=== PATIENT | male | born 1945 | race Caucasian/White ===

== ENCOUNTER → 2019-12-16 13:43 | Outpatient (CLI) | payer MEDICARE, SELFPAY ==
--- NOTE | ~2019-12-16 | US_ITS ---
US right upper quadrant DATE: 12/16/2019 14:09 INDICATION: Epigastric abdominal pain TECHNIQUE: Real-time imaging of liver, pancreas, gallbladder areas COMPARISON: None FINDINGS: No hepatic or pancreatic space-occupying mass lesion. Normal hepatopedal portal venous flow direction. No gallstones, gallbladder wall thickening or abnormal pericholecystic fluid collection. Negative sonographic Mathews's sign. The common bile duct measures 3.6 mm, normal. IMPRESSION: Negative examination Reviewed, dictated and finalized at [facility]. Reviewed, dictated and finalized at location B. IMPRESSION: Negative examination
== END ==
PROVIDERS: Visit Provider Family Medicine
DX: R10.10 Upper abdominal pain, unspecified (principal)
CPT/HCPCS: 76705

== ENCOUNTER 2019-12-21 08:22 | Outpatient (CLI) | payer MEDICARE, SELFPAY ==
--- NOTE | ~2019-12-21 | NM_ITS ---
EXAMINATION: NM hepatobiliary w pharm DATE: 12/21/2019 11:27 INDICATION: Upper abdominal pain, unspecified. COMPARISON: Ultrasound 12/16/2019 TECHNIQUE: 5.5 mCi Tc-99m mebrofenin (Choletec) was administered intravenously. Scintigraphic images of the abdomen were obtained for one hour. Then, 2 mcg sincalide (Kinevac) IV was administered, and imaging was continued for 30 minutes. FINDINGS: There is normal clearance of radiotracer from the blood pool. There is homogeneous tracer u ptake by the liver. Activity progresses to the bowel and gallbladder. Gallbladder ejection fraction (GBEF) was 10%. Note that most patients with gallbladder dysfunction have GBEF < 35%, which overlaps with the broad normal range of 10-90%. IMPRESSION: 1. Gallbladder ejection fraction in the lower range of normal. Note that this value overlaps with th e range of values that may be seen with gallbladder dysfunction and/or chronic cholecystitis if there is appropriate clinical correlation. Reviewed, dictated and finalized at location A. IMPRESSION: 1. Gallbladder ejection fraction in the lower range of normal. Note that this value overlaps with the range of values that may be seen with gallbladder dysfu nction and/or chronic cholecystitis if there is appropriate clinical correlatio nThomas
== END 2019-12-21 08:23 | disposition home or self-care (01) ==
PROVIDERS: PCP Family Medicine; Visit Provider Family Medicine
DX: R10.10 Upper abdominal pain, unspecified (principal)
CPT/HCPCS: 78227; A9537; J2805

== ENCOUNTER 2020-02-08 09:00 | Outpatient (RCR) | payer MEDICARE, SELFPAY ==
[2019-12-06 12:55] VITALS: PULSE 46
--- NOTE | 2020-01-04 10:56 | PCCPR ---
Left message he would be absent. no reason given.
--- NOTE | 2020-01-23 09:11 | PCCPR ---
Absent today, no reason given.
--- NOTE | 2020-01-25 11:09 | PCCPR ---
Absent-Jozef called & stated he went golfing with a friend Thursday who texted him yesterday saying he was COVID positive. Jozef will quarantine & return on Thursday.
== END 2020-02-08 10:54 | disposition home or self-care (01) ==
LOC: ANHCPREHAB 09:00
PROVIDERS: PCP Family Medicine
DX: Z95.5 Presence of coronary angioplasty implant and graft (principal)
CPT/HCPCS: 93798

== ENCOUNTER 2020-02-27 00:28 | Outpatient (CLI) | payer MEDICARE, SELFPAY ==
[2020-02-27 18:12] LABS: SARS-CoV-2 RNA PCR Negative
== END 2020-02-27 00:29 | disposition home or self-care (01) ==
LOC: ANHCOVIDDT 00:29
PROVIDERS: PCP Family Medicine; Visit Provider Surgery
DX: Z01.818 Encounter for other preprocedural examination (principal); Z20.828 Contact with and (suspected) exposure to other viral communicable diseases
CPT/HCPCS: 87635; C9803; U0003

== ENCOUNTER 2020-02-27 10:12 | Outpatient (CLI) | payer MEDICARE, SELFPAY ==
[2020-02-27 10:43] LABS: Anion Gap 4 mmol/L (8-16); Blood Urea Nitrogen 18 mg/dL (9-20); Calcium 9.2 mg/dL (8.4-10.2); Carbon Dioxide 34 mmol/L (22-30); Chloride 103 mmol/L (98-107); Estimated Glomerular Filt Rate 60; Glucose 105 mg/dL (75-110); Potassium 4.4 mmol/L (3.4-5.0); Sodium 141 mmol/L (137-145)
[2020-02-27 10:44] LABS: Alanine Aminotransferase 60 U/L (4-50); Alkaline Phosphatase 74 U/L (38-126); Amylase 51 U/L (30-110); Aspartate Amino Transferase 41 U/L (17-59); Bilirubin,Total 0.8 mg/dL (0.2-1.3); Lipase 67 U/L (23-300)
== END 2020-02-27 10:13 | disposition home or self-care (01) ==
LOC: ANHSURGERY 10:14
PROVIDERS: Anesthesiology; PCP Family Medicine; Visit Provider Surgery
DX: K82.8 Other specified diseases of gallbladder (principal); E11.9 Type 2 diabetes mellitus without complications; Z01.818 Encounter for other preprocedural examination
CPT/HCPCS: 36415; 80048; 80076; 82150; 83690; 86850; 86900; 86901; 87635; C9803; U0003

== ENCOUNTER 2020-02-29 02:10 | Day surgery (SDC) | payer MEDICARE, SELFPAY ==
[2020-02-22 09:56] VITALS: BMI 27.1
[2020-02-29] VITALS (7 sets, daily range): BP systolic 125–158; BP diastolic 60–89; PULSE 51–71; RESP 14–22; TEMP 36.1–36.3; O2SAT 97–100
[2020-02-29 10:50] LABS: Glucose Point of Care 105 (65-105)
[2020-02-29] MEDS: LACTATED RINGERS 1,000 ML 30 ML IV CONT ×2 (10:50→13:29)
--- NOTE | 2020-02-29 10:57 | WPDANESEPPF ---
Anes - Initial Pre Proc Eval Procedure: Operation Date: 02/29/20 12:00 Proposed Procedures p Laparoscopic Cholecystectomy - Tracy Reyes MD Date/Time: 02/29/20 10:57 Surgeon: Tracy Reyes MD Pre Op Diagnosis: Chronic Cholecystitis without Calculus Patient Data Age: 74 Gender: M Height: 6 ft Weight: 91.3 kg Allergies Allergy/AdvReac Type Severity Reaction Status Date / Time No Known Allergies Allergy Verified 02/29/20 10:27 Home Medications Medication Instructions Recorded Confirmed Type metformin 500 mg tablet,extended 500 mg PO BID 04/13/19 02/29/20 History release 24 hr aspirin 81 mg tablet,delayed 81 mg PO DAILY 09/29/19 02/29/20 History release atorvastatin 80 mg tablet 80 mg PO HS 09/29/19 02/29/20 History amlodipine 5 mg tablet 5 mg PO DAILY 12/06/19 02/29/20 History clopidogrel 75 mg tablet 75 mg PO DAILY 12/06/19 02/29/20 History pantoprazole 40 mg tablet,delayed 40 mg PO QAM 12/26/19 02/29/20 History release carvedilol 6.25 mg tablet 3.125 mg PO Q12H tablet 01/26/20 02/29/20 History ascorbic acid (vitamin C) [Vitamin 1 g PO DAILY 02/22/20 02/29/20 History C] cholecalciferol (vitamin D3) 10 mcg PO DAILY 02/22/20 02/29/20 History cyanocobalamin (vitamin B-12) 2,000 mcg PO DAILY 02/22/20 02/29/20 History finasteride [Proscar] 5 mg PO HS 02/22/20 02/29/20 History tamsulosin [Flomax] 0.4 mg PO HS 02/22/20 02/29/20 History Laboratory Tests 02/29/20 10:48 POC Capillary Glucose 105 mg/dl mg/dl (65-105) Patient hx anesthesia problems: none Family hx anesthesia problems: none PMFSH Past Medical History Medical History Atherosclerosis of coronary artery of [place] heart without angina pectoris Essential (primary) hypertension GERD (gastroesophageal reflux disease) Mixed hyperlipidemia Type 2 diabetes mellitus without complication, without long-term current use of insulin Upper abdominal pain Surgical History Surgical History H/O neck surgery 2010 History of coronary artery stent placement July 27- stent placed July 30- 2 stents placed Family History Family History Mother Diabetes mellitus Family history of Parkinson's disease, Onset Age: 79 Father Family history of malignant neoplasm of kidney, Onset Age: 82 Sibling Diabetes mellitus Social History Social History Smoking packs per day: 1 Smoking cigarettes per day: 20.0 Years smoked: 30 Smoking pack-years: 30.00 Smoking status: Former smoker Tobacco type: cigarettes Second hand tobacco smoke exposure: No Smoking end date: 05/25/07 Additional smoking assessment comments: <PK/DAY/20+YRS - QUIT JULY 2019 Alcohol intake: current Drinks per week: 10 Substance use: never Living arrangements: with family Spiritual care concerns: No Anes - Eval Final PreProcedure Day of Procedure 02/29/20 10:57 Patient weight: overweight Heart: regular rate and rhythm Lungs: clear to auscultation Airway: Mallampati scale class III and special considerations poor opening Neurological: alert and oriented Last oral intake: >/= 8 hours ASA classification: III Emergent: no Anesthetic plan: proceed Anesthesia type and monitoring: general ETT and standard monitoring Other findings: jorje for glidescope Informed Consent: The patient's anesthetic plan and its attendant risks and benefits were discussed with the patient/family/POA. Questions were solicited and answers provided to the satisfaction of the patient/family/POA.
[2020-02-29] MEDS: KETOROLAC 15 MG/ML VIAL (*BKC) IV PUSH (11:15)
[2020-02-29] MEDS: ACETAMINOPHEN 500 MG TABLET 1000 MG PO (11:15)
--- NOTE | 2020-02-29 11:36 | WPDHPUPDATE1 ---
History and Physical Update Update Date/Time: 02/29/20 11:36 History and Physical has been reviewed, including an updated exam of the patient. There are NO changes in the patient's condition. Risks, benefits, and alternatives have been discussed and questions answered. Patient agrees to proceed with procedure.
--- NOTE | 2020-02-29 12:05 | PM.IMHP ---
H&P: HPI History of Present Illness Date/Time: 02/29/20 12:05 Chief complaint: Chronic Cholecystitis without Calculus Narrative: Eleazar Weber is a 74 year old male presented to my office c/o a few month h/o intermittent epigastric pain seemingly worse after eating. Pt also reports associated nausea and bloating. Workup including HIDA shows likely biliary dyskinesia, colic. Review of Systems Review of Systems: All systems reviewed & are unremarkable except as noted in HPI and below PMFSH Past Medical History Medical History Atherosclerosis of coronary artery of [place] heart without angina pectoris Essential (primary) hypertension GERD (gastroesophageal reflux disease) Mixed hyperlipidemia Type 2 diabetes mellitus without complication, without long-term current use of insulin Upper abdominal pain Surgical History Surgical History H/O neck surgery 2009 History of coronary artery stent placement July 27- stent placed July 30- stents placed Family History Family History Mother Diabetes mellitus Family history of Parkinson's disease, Onset Age: 79 Father Family history of malignant neoplasm of kidney, Onset Age: 82 Sibling Diabetes mellitus Social History Social History Smoking packs per day: 1 Smoking cigarettes per day: 20.0 Years smoked: 30 Smoking pack-years: 30.00 Smoking status: Former smoker Tobacco type: cigarettes Second hand tobacco smoke exposure: No Smoking end date: 05/25/07 Additional smoking assessment comments: <PK/DAY/20+YRS - QUIT JULY 2019 Alcohol intake: current Drinks per week: 10 Substance use: never Living arrangements: with family Spiritual care concerns: No Meds Home Medications and Allergies Home Medications Medication Instructions Recorded Confirmed Type metformin 500 mg tablet,extended 500 mg PO BID 04/13/19 02/29/20 History release 24 hr aspirin 81 mg tablet,delayed 81 mg PO DAILY 09/29/19 02/29/20 History release atorvastatin 80 mg tablet 80 mg PO HS 09/29/19 02/29/20 History amlodipine 5 mg tablet 5 mg PO DAILY 12/06/19 02/29/20 History clopidogrel 75 mg tablet 75 mg PO DAILY 12/06/19 02/29/20 History pantoprazole 40 mg tablet,delayed 40 mg PO QAM 12/26/19 02/29/20 History release carvedilol 6.25 mg tablet 3.125 mg PO Q12H tablet 01/26/20 02/29/20 History ascorbic acid (vitamin C) [Vitamin 1 g PO DAILY 02/22/20 02/29/20 History C] cholecalciferol (vitamin D3) 10 mcg PO DAILY 02/22/20 02/29/20 History cyanocobalamin (vitamin B-12) 2,000 mcg PO DAILY 02/22/20 02/29/20 History finasteride [Proscar] 5 mg PO HS 02/22/20 02/29/20 History tamsulosin [Flomax] 0.4 mg PO HS 02/22/20 02/29/20 History Allergies Allergy/AdvReac Type Severity Reaction Status Date / Time No Known Allergies Allergy Verified 02/29/20 10:27 Vital Signs Vital Signs - 24 hr 02/29/20 10:20 Temperature 36.1 C L Pulse Rate 51 L Respiratory Rate 16 Blood Pressure 135/75 Pulse Oximetry 98 Exam Const: General: no acute distress Resp: Auscultation: clear to auscultation bilaterally Cardio: Rate: regular rate Rhythm: regular rhythm GI: GI Palp: Yes Soft to palpation, Yes Tenderness to palpation present (GI), No Guarding due to palpation present (GI) and No Hernia present Assessment and Plan Assessment and plan (1) Biliary dyskinesia: Code(s): K82.8 - Other specified diseases of gallbladder Status: Acute Assessment and Plan: long dw pt and decision to proceed c cholecystectomy (2) CAD (coronary artery disease): Code(s): I25.10 - Atherosclerotic heart disease of [place] coronary artery without angina pectoris Status: Acute Assessment and Plan: hold antic
[2020-02-29] MEDS: ceFAZolin 2 GM/D5W 50 ML 2 GM/50 ML BAG IVPB (12:28)
[2020-02-29] MEDS: BUPIVACAINE/EPINEPHRINE 0.5% 10 ML VIAL 30 ML INFILTRATE (13:01)
--- NOTE | 2020-02-29 13:20 | PM.PROC ---
Procedure Note - Detailed Date of procedure: 02/29/20 Pre-op diagnosis: Chronic Cholecystitis without Calculus Post-op diagnosis: same Procedure performed: laparoscopic cholecystectomy Description of procedure: The patient was taken to the operating room placed in the supine position. After adequate induction of general anesthesia, the patient was prepped and draped in normal sterile fashion. A time-out was then performed to verify the patient's identity as well as the procedure being performed. I then made a 5 mm incision in the infraumbilical region. Through this, a Veress needle was placed into the peritoneal cavity and CO2 gas was then insufflated. After adequate pneumoperitoneum was achieved, the Veress needle was removed and a 5 mm trocar was placed through this incision. I then placed the laparoscope through this trocar site and under direct visualization placed a further 12 mm subxiphoid port as well as 2 additional 5 mm ports in the right upper abdomen. The was some omental adhesions to the right anterior abdominal wall and this was taken down bluntly to aid with visualization. The gallbladder was then identified and was noted to be moderately inflamed. I was able to place a grasper at the dome of the gallbladder and this was retracted anterior and cephalad up over the liver. A 2nd retractor was then placed at the infundibulum and retracted laterally, this allowed visualization of the triangle of [place]. I then was able to visualize the cystic duct in its entirety from its proximal insertion into the gallbladder, to its distal junction with the common hepatic/common bile duct junction. At this point, I carefully skeletonized the proximal cystic duct with the [place] dissector. I then clipped and transected the proximal cystic duct. Next I visualized the cystic artery. Again the artery was skeletonized, clipped, and transected. I then used the Bovie cautery to take down the peritoneal attachments of the gallbladder off the liver bed. Once the gallbladder specimen was completely detached, an endo-pouch was placed through the 12 mm port site. I then placed the gallbladder specimen into the Endo pouch and removed the endo-pouch from the 12 mm port site. The specimen will now be sent to pathology for further review. I then copiously irrigated the right upper quadrant. Hemostasis was noted in the liver bed, the clips were noted to be in good position on both the cystic duct stump and the cystic artery stump. No other pathology was noted in the right upper quadrant. I then moved the laparoscope to the subxiphoid port. No iatrogenic injury or other pathology was noted in the lower abdomen. At this point, the abdomen was desufflated and all ports removed. The fascia of the 12 mm subxiphoid port was closed with a 0 Vicryl figure of 8 suture. All port sites were then closed with 4.O Monocryl subcuticular sutures. Dermabond was placed on each incision. The patient tolerated the procedure well, was extubated in the operating room postoperative and will be transferred to the recovery room in stable condition. Implants: none Anesthesia: GETA Surgeon: Tracy Reyes MD Estimated blood loss (mL): 10 Drains: No Packing: No Pathology: yes Complications: No immediate complications Condition: stable Disposition: PACU Findings: chronic choleclystitis
[2020-02-29 13:36] LABS: Glucose Point of Care 117 (65-105)
== END 2020-02-29 14:57 | disposition home or self-care (01) ==
PROVIDERS: PCP Family Medicine; Visit Provider Surgery
PROC: 0FT44ZZ Resection of Gallbladder, Percutaneous Endoscopic Approach (ICD-10-PCS; CPT 47562; principal; 2020-02-29 12:00)
DX: K81.1 Chronic cholecystitis (principal); I10 Essential (primary) hypertension; I25.10 Atherosclerotic heart disease of native coronary artery without angina pectoris; E78.2 Mixed hyperlipidemia; E11.9 Type 2 diabetes mellitus without complications; K21.9 Gastro-esophageal reflux disease without esophagitis; Z87.891 Personal history of nicotine dependence; Z79.84 Long term (current) use of oral hypoglycemic drugs; Z79.82 Long term (current) use of aspirin; Z79.02 Long term (current) use of antithrombotics/antiplatelets
CPT/HCPCS: 47562; 88304; A9270; J0690; J1100; J1885; J2001; J2405; J2710; J3010; J7030; J7120

== ENCOUNTER 2021-02-14 11:11 | Outpatient (RCR) | payer MEDICARE, SELFPAY ==
--- NOTE | 2021-02-14 09:33 | PC.NURSE ---
Patient received both doses of the Pfizer vaccine in May and June 2020.
[2021-02-14] MEDS: diphenhydrAMINE HCl CAP 25 MG CAPSULE PO (12:05)
[2021-02-14] MEDS: ACETAMINOPHEN 325 MG TABLET 650 MG PO (12:05)
[2021-02-14 12:15] VITALS: BP 121/60; PULSE 48; RESP 18; TEMP 36.6; O2SAT 100
[2021-02-14 13:37] VITALS: BP 128/63; PULSE 46; RESP 18; TEMP 36.4; O2SAT 100
== END 2021-02-14 13:50 | disposition home or self-care (01) ==
LOC: AMCINF 11:11
PROVIDERS: PCP Family Medicine; Referring Provider Family Medicine; Visit Provider Internal Medicine Hematology & Oncology
DX: Z23 Encounter for immunization (principal); U07.1 COVID-19; I10 Essential (primary) hypertension; E11.9 Type 2 diabetes mellitus without complications; I25.10 Atherosclerotic heart disease of native coronary artery without angina pectoris
CPT/HCPCS: A9270; J7050; M0243

== ENCOUNTER → 2021-10-31 10:29 | Outpatient (CLI) | payer MEDICARE, SELFPAY ==
--- NOTE | ~2021-10-31 | XR_ITS ---
XR shoulder LT min 2V DATE: 10/31/2021 10:53 INDICATION: Left shoulder pain TECHNIQUE: 4 views COMPARISON: None FINDINGS: Status post lower anterior cervical spine surgical fusion. No fracture or dislocation, periosteal reaction or bone destruction or abnormal soft tissue calcifica tion of the left shoulder. Normal alignment at the left acromioclavicular and glenohumeral joints. IMPRESSION: No significant abnormality of the left shoulder Status post anterior C6-7 surgical spinal fusion Reviewed, dictated and finalized at location A.
--- NOTE | ~2021-10-31 | XR_ITS ---
XR shoulder RT min 2V DATE: 10/31/2021 10:54 INDICATION: Right shoulder pain. No injury. TECHNIQUE: 4 views COMPARISON: None FINDINGS: There is narrowing at the right glenohumeral joint consistent with degenerative change. No fracture or dislocation, periosteal reaction or bone destruction or abnormal soft tissue calcifica tion of the right shoulder. IMPRESSION: Mild degenerative change at right acromioclavicular joint Reviewed, dictated and finalized at location A.
== END ==
PROVIDERS: PCP Family Medicine; Visit Provider Nurse Practitioner Family
DX: M25.512 Pain in left shoulder (principal); M19.011 Primary osteoarthritis, right shoulder; Z98.1 Arthrodesis status
CPT/HCPCS: 73030

== ENCOUNTER 2021-12-05 11:08 | Outpatient (CLI) | payer MEDICARE, SELFPAY ==
--- NOTE | ~2021-12-05 | US_ITS ---
US renal BI 12/05/2021 11:46 Procedure: Realtime transabdominal ultrasound of the kidneys and bladder. Indication: Renal insufficiency Comparison: Ultrasound dated 12/26/2013 Findings: Renal echotexture is normal bilaterally without hydronephrosis, contour deforming mass or r enal calculus. The right kidney measures 11.2 cm and left kidney measures 10.2 cm. There are left crow al cysts, largest measuring 4.5 cm. There is enlarged prostate gland. Bladder within normal limits. Impression: 1: Left renal cyst measuring up to 4.5 cm. Reviewed, dictated and finalized at location A. Impression: 1: Left renal cyst measuring up to 4.5 cm.
== END 2021-12-05 11:09 | disposition home or self-care (01) ==
LOC: ANHIMG 11:09
PROVIDERS: PCP Family Medicine; Visit Provider Family Medicine
DX: N28.9 Disorder of kidney and ureter, unspecified (principal); N28.1 Cyst of kidney, acquired
CPT/HCPCS: 76775

== ENCOUNTER 2023-02-05 08:31 | Emergency (ER) | payer MEDICARE, SELFPAY ==
[2023-02-05 08:42] VITALS: BP 148/64; PULSE 57; RESP 20; TEMP 36.2; O2SAT 100
--- NOTE | 2023-02-05 08:47 | ED.GENADULT ---
HPI - General Adult General Chief complaint: Unspecified Stated complaint: Nerve stuff in shoulders/hands Source: patient Mode of arrival: ambulatory Limitations: no limitations History of Present Illness HPI narrative: 77-year-old male with a history of arthralgia presented for complaint bilateral shoulder pain, bilateral hand, and right wrist pain. Endorses the symptoms are chronic; he follows with interventional pain management and receives steroid injections to shoulders every 6 months. He states he is scheduled for the next injection in February, and symptoms tend to return when steroid is wearing off. Denies numbness, tingling, weakness or decreased ROM of the arms. Patient continues to golf regularly, stating the pain can affect the golf swing. Taking Tylenol arthritis BID. Related Data Home Medications Medication Instructions Recorded Confirmed aspirin 81 mg tablet,delayed 81 mg PO DAILY 09/29/19 02/05/23 release (Enteric Coated Aspirin) ascorbic acid (vitamin C) 1,000 mg 1 g PO DAILY 02/22/20 02/05/23 tablet (Vitamin C) cholecalciferol (vitamin D3) 10 400 unit PO DAILY 03/11/22 02/05/23 mcg (400 unit) tablet cyanocobalamin (vitamin B-12) 2,000 mcg PO DAILY 03/11/22 02/05/23 2,000 mcg tablet Allergies Allergy/AdvReac Type Severity Reaction Status Date / Time No Known Allergies Allergy Verified 02/05/23 08:49 Review of Systems Review of Systems: CONSTITUTIONAL: Denies body aches, fever, chills EYES: Denies visual changes ENT: Denies rhinorrhea, congestion CARDIOVASCULAR: Denies chest pain, palpitations, or edema. RESPIRATORY: Denies cough or dyspnea. GASTROINTESTINAL: Denies abdominal pain, nausea, vomiting, or diarrhea. SKIN: Denies rash, itching, or wounds. MUSCULOSKELETAL: Reports joint pain Denies back pain, neck pain or myalgia. NEUROLOGIC: Denies headache, numbness, tingling, or weakness. All systems reviewed & are unremarkable except as noted in HPI and below [facility] Past Medical History Medical History At low risk for fall Atherosclerosis of coronary artery of [place] heart without angina pectoris Basal cell carcinoma (~07/14/19) left inferior lateral neck Biliary dyskinesia BMI 24.0-24.9, adult BMI 25.0-25.9,adult BMI 26.0-26.9,adult BMI 31.0-31.9,adult CAD (coronary artery disease) Chronic cholecystitis COVID-19 (02/10/21) fully vaccinated and positive for COVID on 02/13/2021 Diarrhea stool for O&P, C&S, Giardia, C difficile toxin negative on 03/13/2022. Dizziness Dysplastic nevus dysplastic nevus with mild atypia right midback Encounter for prostate cancer screening Encounter for surgical aftercare following surgery on the digestive system Essential (primary) hypertension GERD (gastroesophageal reflux disease) Irritable bowel syndrome with diarrhea Left shoulder pain jail (current) use of antithrombotics/antiplatelets Malignant melanoma (07/12/20) left posterior shoulder excised with no recurrence Mixed hyperlipidemia Cholesterol 111, triglycerides 60, HDL 48, LDL 49 on 09/25/2021. Total cholesterol 114, HDL 55, triglycerides 54, LDL 46 with ratio 2.1 on 11/26/2022. Overweight (BMI 25.0-29.9) Peripheral vascular disease with claudication Right shoulder pain Squamous cell carcinoma Type 2 diabetes mellitus without complication, without long-term current use of insulin Fasting glucose 93 with hemoglobin A1c 5.9 , urine microalbumin ratio of 5 on 09/25/2021. Glucose 110 with hemoglobin A1c 5.9 on 02/07/2022. Fasting glucose 127 with hemoglobin A1c 6.1 on 11/26/2022. Upper abdominal pain Surgical History Surgical History H/O neck surgery 2009 History of coronary artery stent placement July 27- stent placed July 30- 2 stents placed Hx laparoscopic cholecystectomy 02/29/2020 Family History Family History (Reviewed 02/05/23 @ 09:02 by Zaida
[2023-02-05 08:52] VITALS: BP 148/64; PULSE 57; RESP 20; TEMP 36.2; O2SAT 100
== END 2023-02-05 09:00 | disposition home or self-care (01) ==
PROVIDERS: Emergency Provider Nurse Practitioner Family; PCP Family Medicine
DX: M25.512 Pain in left shoulder (principal); M25.511 Pain in right shoulder; Z87.891 Personal history of nicotine dependence; I25.10 Atherosclerotic heart disease of native coronary artery without angina pectoris; I10 Essential (primary) hypertension; K21.9 Gastro-esophageal reflux disease without esophagitis; E78.2 Mixed hyperlipidemia; I73.9 Peripheral vascular disease, unspecified; E11.9 Type 2 diabetes mellitus without complications; Z85.828 Personal history of other malignant neoplasm of skin; Z85.820 Personal history of malignant melanoma of skin; Z95.5 Presence of coronary angioplasty implant and graft; Z79.82 Long term (current) use of aspirin
CPT/HCPCS: 99213; G0463

== ENCOUNTER 2023-10-26 18:04 | Emergency (ER) | payer MEDICARE, SELFPAY ==
--- NOTE | ~2023-10-26 | XR_ITS ---
EXAMINATION: XR chest 2V Exam Date/Time: 10/26/2023 18:40 CDT HISTORY: cough x 10days. ex smoker Comparison: None. RESULT: Lines, tubes, and devices: ACDF hardware. Cholecystectomy clips. Lungs and pleura: Clear. Cardiomediastinal silhouette: Unremarkable. Other: No acute osseous or upper abdominal finding. IMPRESSION: No acute cardiopulmonary process. Reviewed, dictated and finalized at location K.
[2023-10-26 18:08] VITALS: BP 102/51; PULSE 78; RESP 20; TEMP 36.9; O2SAT 98
--- NOTE | 2023-10-26 18:26 | ED.URI ---
HPI - URI/Sore Throat General Chief Complaint: Upper Respiratory Infection Stated Complaint: Cough/congestion Time Seen by Provider: 10/26/23 18:30 Source: patient, RN notes reviewed and old records reviewed Mode of arrival: ambulatory Limitations: no limitations History of Present Illness HPI Narrative: 78-year-old male presents to the [facility] with complaints of, congestion for the last 10 days. Denies any chest pain or fevers. Has had intermittent shortness of breath with coughing. Has a history of hypertension, high cholesterol and prostate issues. Has been using his prescribed inhaler, cough medicine and decongestants. Has been using Vicks as well as Zyrtec. Patient reports Zyrtec has worked the best. Onset (ago): day(s) () Treatments prior to arrival: cold medicine Related Data Home Medications Medication Instructions Recorded Confirmed aspirin 81 mg tablet,delayed 81 mg PO DAILY 09/29/19 10/06/23 release (Enteric Coated Aspirin) ascorbic acid (vitamin C) 1,000 mg 1 g PO DAILY 02/22/20 10/06/23 tablet (Vitamin C) cholecalciferol (vitamin D3) 10 400 unit PO DAILY 03/11/22 10/06/23 mcg (400 unit) tablet cyanocobalamin (vitamin B-12) 2,000 mcg PO DAILY 03/11/22 10/06/23 2,000 mcg tablet Allergies Allergy/AdvReac Type Severity Reaction Status Date / Time No Known Allergies Allergy Verified 02/26/23 09:32 Review of Systems Review of Systems: All systems reviewed & are unremarkable except as noted in HPI and below Constitutional: Constitutional: Reports no additional constitutional complaints Eyes: Eyes: Reports no additional eye complaints ENT: Reports system reviewed and no additional complaints, except as documented Cardiovascular: Cardiovascular: Reports no additional cardiovascular complaints, Denies chest pain and Denies dyspnea Respiratory: Respiratory: Reports as per HPI, Reports chest congestion, Reports cough and Denies dyspnea Gastrointestinal: Gastrointestinal: Reports no additional gastrointestinal complaints, Denies abdominal pain, Denies nausea and Denies vomiting Musculoskeletal: Musculoskeletal: Reports no additional musculoskeletal complaints Integumentary/Breasts: Skin/Breast: Reports system reviewed and no additional complaints, except as docu Neurologic: Reports system reviewed and no additional complaints, except as documented Psychiatric: Psychiatric: Reports no additional psychiatric complaints Allergic/Immunologic: Allergic/Immunologic: Reports no additional allergic/immunologic complaints PMFSH Past Medical History Medical History At low risk for fall Atherosclerosis of coronary artery of [place] heart without angina pectoris Basal cell carcinoma (~07/14/19) left inferior lateral neck Biliary dyskinesia BMI 24.0-24.9, adult BMI 25.0-25.9,adult BMI 26.0-26.9,adult BMI 31.0-31.9,adult CAD (coronary artery disease) Chronic cholecystitis COVID-19 (02/10/21) fully vaccinated and positive for COVID on 02/13/2021 Diarrhea stool for O&P, C&S, Giardia, C difficile toxin negative on 03/13/2022. Dizziness Dysplastic nevus dysplastic nevus with mild atypia right midback Elevated fasting glucose glucose 127 with hemoglobin A1c 6.1 on 11/26/2022. Encounter for prostate cancer screening Encounter for surgical aftercare following surgery on the digestive system Essential (primary) hypertension GERD (gastroesophageal reflux disease) Irritable bowel syndrome with diarrhea Left shoulder pain [employer] (current) use of antithrombotics/antiplatelets Malignant melanoma (07/12/20) left posterior shoulder excised with no recurrence Mixed hyperlipidemia Cholesterol 111, triglycerides 60, HDL 48, LDL 49 on 09/25/2021. Total cholesterol 114, HDL 55, triglycerides 54, LDL 46 with ratio 2.1 on 11/26/2022. Overweight (BMI 25.0-29.9) Peripheral vascular disease with claudication Right shoulder pain Squamous cell carcinoma T
== END 2023-10-26 19:11 | disposition home or self-care (01) ==
PROVIDERS: Emergency Provider Nurse Practitioner; PCP Family Medicine
DX: J40 Bronchitis, not specified as acute or chronic (principal); Z87.891 Personal history of nicotine dependence; I25.10 Atherosclerotic heart disease of native coronary artery without angina pectoris; K21.9 Gastro-esophageal reflux disease without esophagitis; E78.2 Mixed hyperlipidemia; I73.9 Peripheral vascular disease, unspecified; E11.9 Type 2 diabetes mellitus without complications; Z85.828 Personal history of other malignant neoplasm of skin; Z85.820 Personal history of malignant melanoma of skin; Z86.16 Personal history of COVID-19; Z95.5 Presence of coronary angioplasty implant and graft
CPT/HCPCS: 71046; 99213; G0463

== ENCOUNTER 2024-05-20 14:10 | Emergency (ER) | payer MEDICARE, SELFPAY ==
--- NOTE | ~2024-05-20 | XR_ITS ---
XR chest 2V Ordering provider: Kristin Romo APRN History: 78 years Male with . cough sob . Comparison: October 26, 2023 FINDINGS: MEDIASTINUM: The cardiac silhouette is not enlarged. LUNGS: No infiltrates, effusions or pneumothorax. OTHER: No free air under the diaphragm. IMPRESSION: No acute cardiopulmonary pathology. Reviewed, dictated and finalized at location A. [employer]
[2024-05-20 14:21] VITALS: BP 89/53; PULSE 77; RESP 16; TEMP 36.9; O2SAT 96
[2024-05-20 14:52] VITALS: BP 92/50
--- NOTE | 2024-05-20 14:56 | ED_ITS ---
HPI - URI/Sore Throat General Chief Complaint: Upper Respiratory Infection Stated Complaint: Chest Congestion/Cough Time Seen by Provider: 05/20/24 15:06 Source: patient Mode of arrival: ambulatory Limitations: no limitations History of Present Illness HPI Narrative: 78-year-old male with a history of CKD, CAD, DM, presented for complaint of frequent cough and chest congestion for 3 days. Endorses occasional shortness of breath with exertion and a 'gurgling' sound. Denies nausea, vomiting, diarrhea, fevers or lethargy. Related Data Home Medications ?Medication ?Instructions ?Recorded ?Confirmed ?Last Taken ?Type aspirin 81 mg tablet,delayed 81 mg PO DAILY 09/29/19 05/10/24 Unknown History release (Enteric Coated Aspirin) ascorbic acid (vitamin C) 1,000 mg 1 g PO DAILY 02/22/20 05/10/24 Unknown History tablet (Vitamin C) cholecalciferol (vitamin D3) 10 400 unit PO DAILY 03/11/22 05/10/24 Unknown History mcg (400 unit) tablet cyanocobalamin (vitamin B-12) 2,000 mcg PO DAILY 03/11/22 05/10/24 Unknown History 2,000 mcg tablet Allergies Allergy/AdvReac Type Severity Reaction Status Date / Time No Known Allergies Allergy Verified 02/29/24 09:04 Review of Systems Review of Systems: CONSTITUTIONAL: Denies body aches, fever, chills, or sweats. EYES: Denies visual changes, redness, or discharge. ENT: Denies rhinorrhea, congestion, sore throat, or otalgia. CARDIOVASCULAR: Denies chest pain, palpitations, or edema. RESPIRATORY: Reports cough, sob, denies wheezing. GASTROINTESTINAL: Denies abdominal pain, nausea, vomiting, or diarrhea. MUSCULOSKELETAL: Denies back pain, joint pain, or myalgia. NEUROLOGIC: Denies headache, numbness, tingling, or weakness. All systems reviewed & are unremarkable except as noted in HPI and below PMFSH Past Medical History Medical History (Updated 05/20/24 @ 15:49 by Kristin Romo, ASH) Malignant melanoma (07/12/20) left posterior shoulder excised with no recurrence Elevated fasting glucose glucose 127 with hemoglobin A1c 6.1 on 11/26/2022. Controlled diabetes mellitus without complication, without long-term current use of insulin (05/05/24) fasting glucose 110 with hemoglobin A1c 6.5 and urine microalbumin ratio of 14 with GFR 49 on 05/05/2024. Chronic kidney disease (CKD) stage G3a/A1, moderately decreased glomerular filtration rate (GFR) between 45-59 mL/min/1.73 square meter and albuminuria creatinine ratio less than 30 mg/g (05/05/24) BUN 27, creatinine 1.52 with GFR 45 on 01/30/2021. BUN 35, creatinine 1.67, GFR 40 on 09/25/2021. Renal ultrasound 12/05/2021 with cyst in the left kidney with largest 4.5 cm with normal bladder and mild prostate enlargement. BUN 38 with creatinine 1.82 with GFR 38, decreased from 40 on 02/07/2022. BUN 34, creatinine 1.42 with GFR 52 on 11/26/2022. BUN 25, creatinine 1.48 with GFR 49 on 05/05/2024. At low risk for fall BMI 24.0-24.9, adult Irritable bowel syndrome with diarrhea Encounter for prostate cancer screening PSA 1.08 on 05/05/2024. Diarrhea stool for O&P, C&S, Giardia, C difficile toxin negative on 03/13/2022. 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 Essential (primary) hypertension Mixed hyperlipidemia Cholesterol 111, triglycerides 60, HDL 48, LDL 49 on 09/25/2021. Total cholesterol 114, HDL 55, triglycerides 54, LDL 46 with ratio 2.1 on 11/26/2022. Cholesterol 99, HDL 47, triglycerides 42, LDL 40 with ratio of 2.1 on 05/05/2024. Peripheral vascular disease with claudication Type 2 diabetes mellitus without complication, without long-term current use of insulin Elevated fasting glucose, no diabetes. Fasting glucose 93 with hemoglobin A1c 5.9 , urine microalbumin ratio of 5 on 09/25/2021. Glucose 110 with hemoglobin A1c 5.9 on 02/07/2022. Fasting glucose 127 with hemoglobin A1c 6.1 on 11/26/2022. Surgical History Surgical History Hx laparoscopic cholecystectomy 02/29/2020 History of coronary artery stent placement July 27- 1 stent placed July 30- 2 stents placed H/O neck surgery 2009 Family History Family History Mother Diabetes mellitus Family history of Parkinson's disease, Onset Age: 79 Father Family history of malignant neoplasm of kidney, Onset Age: 82 Sibling Diabetes mellitus Social History Social History Smoking packs per day: 0.75 Smoking cigarettes per day: 15.0 Years smoked: 20 Smoking pack-years: 15.00 Smoking status: Former smoker Tobacco type: cigarettes Second hand tobacco smoke exposure: No Smoking end date: 05/25/07 Additional smoking assessment comments: <PK/DAY/20+YRS - QUIT JULY 2019 Alcohol intake: current Drinks per week: 10 Substance use: never Lack of Transportation: No Lack of Food: Never True Current Housing: I Have Housing Concerned About Future Housing: No Difficulty Paying Gas/Electric Bills: No Difficulty Paying for Meds: No Currently Unemployed: No Education: High School Diploma/GED Difficulty w/ Childcare or Family Care: No Living arrangements: with family Spiritual care concerns: No Comments At time of signature, I have reviewed and agree with nursing past medical, surgical, social and family history unless otherwise noted. Please see nursing chart for further information. There is no relevant family history pertinent to the presenting complaint Exam Narrative: GENERAL: Well-appearing, in no acute distress. EYES: EOMI. No redness or drainage. Conjunctivae normal. ENT: Mucous membranes pink and moist. No rhinorrhea. TMs normal bilaterally. Throat normal. Uvula midline. NECK: Normal AROM. Supple. CHEST: No respiratory distress. Lungs clear to all lo. frequent moist nonproductive cough noted HEART: Regular rate and rhythm. No murmur appreciated. ABDOMEN: Soft, nontender, nondistended, normal active bowel sounds. SKIN: Warm, dry, no rash. Capillary refill normal. Normal skin turgor. NEURO: Alert and oriented x3. Gait steady. PSYCH: Normal affect. Course Course Emergency Course: Patient is aware of diagnosis, understands and agrees to treatment plan. Anticipatory guidance given. Patient agrees to follow-up as directed and is aware of reasons to seek care at the emergency department. Portions of this record may have been created with voice recognition software Level of Care: Express Care Visit Vital Signs Vital signs: Vital Signs Temperature 98.4 F 05/20/24 14:21 Pulse Rate 77 05/20/24 14:21 Respiratory Rate 16 05/20/24 14:21 Blood Pressure 89/53 L 05/20/24 14:21 Pulse Oximetry 96 05/20/24 14:21 Oxygen Delivery Room Air 05/20/24 14:21 Temperature 98.4 F 05/20/24 14:21 Pulse Rate 77 05/20/24 14:21 Respiratory Rate 16 05/20/24 14:21 Blood Pressure 92/50 L 05/20/24 14:52 Pulse Oximetry 96 05/20/24 14:21 Oxygen Delivery Room Air 05/20/24 14:42 MDM - URI/Sore Throat MDM Narrative Medical decision making narrative: Discussed physical exam findings. negative flu and COVID. Chest x-ray reviewed with patient. Advised supportive measures and signs/symptoms to go to the ER. Pt is appropriate for outpt treatment and f/u. Differential Diagnosis Differential diagnosis: Likely upper respiratory infection, otitis media, viral infection, bronchitis, influenza and pharyngitis Lab Data Labs: Lab Results 05/20/24 Range/Units 15:21 POC Influenza A Ag Negative (Negative) POC Influenza B Ag Negative (Negative) POC SARS CoV-2 Ag Negative (Negative) Imaging Data Radiologist's impression: Patient: Eleazar Weber : 1945 MR#: [id number] Age: 78 Acct:[id number] Loc: [facility] ADM Date: 05/20/24Attending Dr: Ordering Physician: Kristin Romo APRN Date of Service: 05/20/24 Procedure(s): XR chest 2V Accession Number(s): [id number] cc: Kristin Romo APRN; Sukhdev Sena MD~ XR chest 2V Ordering provider: Kristin Romo APRN History: 78 years Male with . cough sob . Comparison: October 26, 2023 FINDINGS: MEDIASTINUM: The cardiac silhouette is not enlarged. LUNGS: No infiltrates, effusions or pneumothorax. OTHER: No free air under the diaphragm. IMPRESSION: No acute cardiopulmonary pathology. Discharge Plan Discharge Clinical Impression: Bronchitis, Low blood pressure reading Patient Disposition: Home, Self-Care Condition: Stable Instructions: Antibiotic Form, Acute Bronchitis (ED), Hypotension (ED) Additional Instructions: Your blood pressure reading was low today. please follow-up with your primary care provider for further evaluation and management. If you develop worsening Blood Pressure symptoms, (chest pain, vision changes, dizziness, vomiting, etc) go to the ER. Call 911. Recommend checking your blood pressure at home at least daily and contact your pcp to discuss the readings. flu and COVID negative. Acute bronchitis can be contagious because it is usually caused by infection with a virus or bacteria. It is usually for a few days but you can be contagious for up to one week. Avoid crowds until you do not have a fever and symptoms are improved Take medication as directed Recommend Flonase spray and Zyrtec (or Claritin/Jailene) over the counter Cough syrup may cause drowsiness; avoid driving or take it at night time. Tylenol 1000mg every 8 hours as needed for pain Symptomatic treatment includes: rest, fluids, and increase humidity of the air at home. Follow up with your primary care provider as needed in 1 week Go to the ER for worsening symptoms or concerns Patient Language: Martiniquais Prescriptions: New methylprednisolone [Medrol ([place])] 4 mg tablets,dose pack See Rx Instructions .ROUTE .COMPLEX Qty: 21 0RF Rx Instructions: orally per package directions No Action aspirin [Enteric Coated Aspirin] 81 mg tablet,delayed release (DR/EC) 81 mg PO DAILY hyoscyamine sulfate [Levsin/SL] 0.125 mg tablet, sublingual 0.125 mg sublingual QID PRN (Reason: diarrhea) Qty: 60 11RF dapagliflozin propanediol [Farxiga] 10 mg tablet 10 mg PO QAM Qty: 30 11RF ascorbic acid (vitamin C) [Vitamin C] 1,000 mg Tablet 1 g PO DAILY cholecalciferol (vitamin D3) 10 mcg (400 unit) tablet 400 unit PO DAILY cyanocobalamin (vitamin B-12) 2,000 mcg tablet 2,000 mcg PO DAILY cholestyramine (with sugar) 4 gram powder 4 g PO DAILY Qty: 378 3RF Rx Instructions: administer w/meal; avoid other meds within 1hr before or 4-6hr after dose losartan-hydrochlorothiazide 50-12.5 mg tablet See Rx Instructions .ROUTE .COMPLEX Qty: 180 2RF Dose Instruction: TAKE 1 TABLET BY MOUTH TWICE DAILY Rx Instructions: TAKE 1 TABLET BY MOUTH TWICE DAILY atorvastatin 80 mg tablet 80 mg PO DAILY Qty: 90 2RF carvedilol 3.125 mg tablet 3.125 mg PO BID Qty: 180 2RF amlodipine 5 mg tablet 5 mg PO DAILY Qty: 90 2RF tamsulosin [Flomax] 0.4 mg capsule 0.4 mg PO HS Qty: 30 11RF finasteride [Proscar] 5 mg tablet 5 mg PO HS Qty: 90 3RF Follow-up/Referrals: Sukhdev Sena MD [Primary Care Provider] - Time of Disposition: 15:50
[2024-05-20 15:23] LABS: EDCOVIDSCREEN Negative (Negative); EDINFLUASCREEN Negative (Negative); EDINFLUBSCREEN Negative (Negative)
== END 2024-05-20 15:52 | disposition home or self-care (01) ==
PROVIDERS: Emergency Provider Nurse Practitioner Family; PCP Family Medicine
DX: J40 Bronchitis, not specified as acute or chronic (principal); I95.9 Hypotension, unspecified; Z20.822 Contact with and (suspected) exposure to COVID-19; Z87.891 Personal history of nicotine dependence; I12.9 Hypertensive chronic kidney disease with stage 1 through stage 4 chronic kidney disease, or unspecified chronic kidney disease; E11.22 Type 2 diabetes mellitus with diabetic chronic kidney disease; N18.31 Chronic kidney disease, stage 3a; I25.10 Atherosclerotic heart disease of native coronary artery without angina pectoris; K21.9 Gastro-esophageal reflux disease without esophagitis; Z95.5 Presence of coronary angioplasty implant and graft; E78.2 Mixed hyperlipidemia; E11.51 Type 2 diabetes mellitus with diabetic peripheral angiopathy without gangrene; Z85.820 Personal history of malignant melanoma of skin; Z85.828 Personal history of other malignant neoplasm of skin
CPT/HCPCS: 71046; 87426; 87804; 99213; G0463

== ENCOUNTER 2025-02-04 08:05 | Emergency (ER) | payer MEDICARE, SELFPAY ==
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
--- OUTSIDE RECORDS SUMMARY | 2025-02-04 08:13 | XMS_ITS | Clinical Summary ---
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 01/21/2021 Active metFORMIN (GLUCOPHAGE) 500 mg tablet Take 1 tablet (500 mg total) by mouth Active atorvastatin (LIPITOR) 80 mg tablet 01/21/2021 Active carvediloL (COREG) 6.25 mg tablet Take 1 tablet (6.25 mg total) by mouth 2 (two) times a day 01/21/2021 Active amLODIPine (NORVASC) 5 mg tablet Take 1 tablet (5 mg total) by mouth daily 01/26/2021 Active clopidogreL (PLAVIX) 75 mg tablet Take 1 tablet (75 mg total) by mouth daily 01/21/2021 Active losartan-hydroC HLOROthiazide (HYZAAR) 50-12.5 mg per tablet Take 1 tablet by mouth 2 (two) times a day 01/31/2021 Active aspirin 81 mg enteric coated tablet Take 1 tablet (81 mg total) by mouth daily Active Active Problems No known active problems Surgical History Surgery Date Site/Laterality Comments APPENDECTOMY NECK SURGERY CHOLECYSTECTOMY Medical History Medical History Date Comments Diabetes mellitus (HCC) Hypertension Hyperlipidemia Heart disease Social History Tobacco Use Types Packs/Day Years Used Date Smoking Tobacco: Former AUDIT-C Answer Date Recorded Q1: How often do you have a drink containing alc ohol? 2-3 times a week 03/08/2024 Q2: How many drinks containi ng alcohol do you have on a typical day when you are drinking? 1 or 2 03/08/2024 Q3: How often do you have si x or more drinks on one occasion? Weekly 03/08/2024 Personal Safety Answer Date Recorded Getting School Help Needed Not on file 07/14 Sex and Gender Information Value Date Recorded Sex Assigned at Not on file Legal Sex Male 9:58 AM CDT Gender Identity Not on file Sexual Orientation Not on file Obstetrics History Last Filed Vital Signs Vital Sign Reading Time Taken Comments Blood Pressure 107/69 03/08/2024 11:12 AM CDT Pulse 63 03/08/2024 11:12 AM CDT Temperature 36.3 C (97.4 F) 02/19/2021 12:08 PM CDT Respiratory Rate 16 02/13/2021 9:43 AM CDT Oxygen Saturation 97% 02/19/2021 12:08 PM CDT Inhaled Oxygen Concentration - - Weight 82.1 kg (181 lb) 03/08/2024 11:12 AM CDT Height 177.8 cm (5' 10) 03/08/2024 11:12 AM CDT Body Mass Index 25.97 03/08/2024 11:12 AM CDT Plan of Treatment Health Maintenance Due Date Last Done Comments Depression Screening 1945 Fall Risk Assessment 1945 Hepatitis C Screening 1945 DTaP/Tdap/Td Vaccine (1 - Tdap) 09/07/1958 Hepatitis B Screening 09/07/1965 Pneumococcal vaccine 65+ (1 of 1 - PCV) 09/07/1997 Zoster Vaccine (1 of 2) 09/07/1997 Abdominal Aortic Aneurysm (A AA) Screen 09/07/2012 Well Visit 65+ 09/07/2012 Covid-19 Vaccine (4 - 2024-2 6 season) 2025 02/17/2023, 03/18/2022, 05/21/2021 Influenza Vaccine (#1) 2025 , 03/18/2022, 02/02/2020, Additional history exists Insurance MEDICARE [facility] MEDICARE SUPPLEMENT INSURANCE * Guarantor: ELEAZAR [employer] Account Type Relation to Patient Date of Phone Billing Address Personal/Family [address] [place] [id number] MEDICARE [facility] MEDICARE SUPPLEMENT INSURANCE Care Teams Barrel Lathe Operator Outside Relationship Specialty Start Date End Date Sukhdev Sena MD [address] [id number] PCP - General Family Medicine 02/12/21
[2025-02-04 08:14] VITALS: BP 129/71; PULSE 54; RESP 14; TEMP 36.5; O2SAT 99
--- NOTE | 2025-02-04 08:29 | ED.URI ---
HPI - URI/Sore Throat General Chief Complaint: Upper Respiratory Infection Stated Complaint: cough,cold Time Seen by Provider: 02/04/25 08:18 Source: patient and RN notes reviewed Mode of arrival: ambulatory Limitations: no limitations History of Present Illness HPI Narrative: Patient presents today complaining of 7-10 day history of cough and nasal congestion. Denies fever, shortness of breath, sore throat. He has been taking Zyrtec, DayQuil, NyQuil with some relief. 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 Related Data Home Medications ?Medication ?Instructions ?Recorded ?Confirmed ?Last Taken ?Type aspirin 81 mg tablet,delayed 81 mg PO DAILY 09/29/19 01/05/25 Unknown History release (Enteric Coated Aspirin) ascorbic acid (vitamin C) 1,000 mg 1 g PO DAILY 02/22/20 01/05/25 Unknown History tablet (Vitamin C) cholecalciferol (vitamin D3) 10 400 unit PO DAILY 03/11/22 01/05/25 Unknown History mcg (400 unit) tablet cyanocobalamin (vitamin B-12) 2,000 mcg PO DAILY 03/11/22 01/05/25 Unknown History 2,000 mcg tablet Allergies Allergy/AdvReac Type Severity Reaction Status Date / Time No Known Allergies Allergy Verified 02/04/25 08:11 [facility] Past Medical History Medical History Renal insufficiency BUN 27, creatinine 1.52 with GFR 45 on 01/30/2021. BUN 35, creatinine 1.67, GFR 40 on 09/25/2021. Renal ultrasound 12/05/2021 with cyst in the left kidney with largest 4.5 cm with normal bladder and mild prostate enlargement. BUN 38 with creatinine 1.82 with GFR 38, decreased from 40 on 02/07/2022. BUN 34, creatinine 1.42 with GFR 52 on 11/26/2022. GERD (gastroesophageal reflux disease) Malignant melanoma (07/12/20) left posterior shoulder excised with no recurrence Elevated fasting glucose glucose 127 with hemoglobin A1c 6.1 on 11/26/2022. Controlled diabetes mellitus without complication, without long-term current use of insulin (05/05/24) fasting glucose 110 with hemoglobin A1c 6.5 and urine microalbumin ratio of 14 with GFR 49 on 05/05/2024. fasting glucose 122, hemoglobin A1c 6.4, GFR 41 on 12/29/2024. Chronic kidney disease (CKD) stage G3a/A1, moderately decreased glomerular filtration rate (GFR) between 45-59 mL/min/1.73 square meter and albuminuria creatinine ratio less than 30 mg/g (05/05/24) BUN 27, creatinine 1.52 with GFR 45 on 01/30/2021. BUN 35, creatinine 1.67, GFR 40 on 09/25/2021. Renal ultrasound 12/05/2021 with cyst in the left kidney with largest 4.5 cm with normal bladder and mild prostate enlargement. BUN 38 with creatinine 1.82 with GFR 38, decreased from 40 on 02/07/2022. BUN 34, creatinine 1.42 with GFR 52 on 11/26/2022. BUN 25, creatinine 1.48 with GFR 49 on 05/05/2024. BUN 32, creatinine 1.71 with GFR 41 on 12/29/2024. At low risk for fall BMI 24.0-24.9, adult Irritable bowel syndrome with diarrhea Encounter for prostate cancer screening PSA 1.08 on 05/05/2024. Diarrhea stool for O&P, C&S, Giardia, C difficile toxin negative on 03/13/2022. 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 Essential (primary) hypertension Mixed hyperlipidemia Cholesterol 111, triglycerides 60, HDL 48, LDL 49 on 09/25/2021. Total cholesterol 114, HDL 55, triglycerides 54, LDL 46 with ratio 2.1 on 11/26/2022. Cholesterol 99, HDL 47, triglycerides 42, LDL 40 with ratio of 2.1 on 05/05/2024. Cholesterol 107, triglycerides 66, HDL 51, LDL 41 with ratio 2.1 on 12/29/2024. Peripheral vascular disease with claudication Type 2 diabetes mellitus without complication, without long-term current use of insulin Elevated fasting glucose, no diabetes. Fasting glucose 93 with hemoglobin A1c 5.9 , urine microalbumin ratio of 5 on 09/25/2021. Glucose 110 with hemoglobin A1c 5.9 on 02/07/2022. Fasting glucose 127 with hemoglobin A1c 6.1 on 11/26/2022. Surgical History Surgical History Hx laparoscopic cholecystectomy 02/29/2020 History of coronary artery stent placement July 27- 1 stent placed July 30- 2 stents placed H/O neck surgery 2009 Family History Family History Mother Diabetes mellitus Family history of Parkinson's disease, Onset Age: 79 Father Family history of malignant neoplasm of kidney, Onset Age: 82 Sibling Diabetes mellitus Social History Social History Smoking packs per day: 0.75 Smoking cigarettes per day: 15.0 Years smoked: 20 Smoking pack-years: 15.00 Smoking status: Former smoker Tobacco type: cigarettes Second hand tobacco smoke exposure: No Smoking end date: 05/25/07 Additional smoking assessment comments: <PK/DAY/20+YRS - QUIT JULY 2019 Alcohol intake: current Drinks per week: 10 Substance use: never Lack of Transportation: No Lack of Food: Never True Current Housing: I Have Housing Concerned About Future Housing: No Difficulty Paying Gas/Electric Bills: No Difficulty Paying for Meds: No Currently Unemployed: No Education: High School Diploma/GED Difficulty w/ Childcare or Family Care: No Living arrangements: with family Spiritual care concerns: No Comments At time of signature, I have reviewed and agree with nursing past medical, surgical, social and family history unless otherwise noted. Please see nursing chart for further information. There is no relevant family history pertinent to the presenting complaint Exam Narrative: GENERAL: Well-appearing, well-nourished, and in no acute distress. HEAD: Normocephalic, atraumatic. EYES: EOMI. No redness or drainage. Conjunctivae normal. ENT: Mucous membranes pink and moist. Nares mildly congested. No rhinorrhea. TMs normal bilaterally. Throat normal. Uvula midline. NECK: Normal AROM. Supple. No lymphadenopathy. CHEST: No respiratory distress. Mild crackling in the right lower lobe, otherwise clear. HEART: Regular rate and rhythm. No murmur appreciated. EXTREMITIES: Normal range of motion. No edema. SKIN: Warm, dry, no rash. Capillary refill normal. Normal skin turgor. NEURO: No focal deficits. Alert and oriented x3. Gait steady. PSYCH: Normal affect. No signs of depression or anxiety. Course Course Level of Care: Express Care Visit Vital Signs Vital signs: Vital Signs Temperature 97.7 F 02/04/25 08:14 Pulse Rate 54 L 02/04/25 08:14 Respiratory Rate 14 02/04/25 08:14 Blood Pressure 129/71 02/04/25 08:14 Pulse Oximetry 99 02/04/25 08:14 Oxygen Delivery Room Air 02/04/25 08:14 Temperature 97.7 F 02/04/25 08:14 Pulse Rate 54 L 02/04/25 08:14 Respiratory Rate 14 02/04/25 08:14 Blood Pressure 129/71 02/04/25 08:14 Pulse Oximetry 99 02/04/25 08:14 Oxygen Delivery Room Air 02/04/25 08:14 Reviewed MDM - URI/Sore Throat MDM Narrative Medical decision making narrative: 79-year-old male, former smoker, presents today with a 7-10 day history of cough and nasal congestion. Denies fever shortness of breath. He has been taking [id number]-yvbnnah medication with some mild improvement. Exam shows some mild nasal congestion and crackling in the right lower lobe. Breathing is unlabored. Patient will be treated with Augmentin and prednisone for bronchitis, sinusitis, and will cover for possible CAP. Recommend continuing OTC medication if needed. Recommend following up with PCP next week if symptoms do not improve. ED precautions given. Vital signs stable. Differential Diagnosis Differential diagnosis: Likely upper respiratory infection, otitis media, viral infection, bronchitis and other (Pneumonia) Critical Care Time Critical Care Time Critical Care Time: No Discharge Plan Discharge Clinical Impression: Acute lower respiratory infection Sinusitis Qualifiers: Sinusitis location: unspecified location Chronicity: acute Recurrence: non-recurrent Qualified Code(s): J01.90 - Acute sinusitis, unspecified Patient Disposition: Home Condition: Stable Instructions: Antibiotic Form, Sinusitis (ED) Additional Instructions: Please take all medications as prescribed. You may continue [id number] medication as needed for symptoms. Follow-up with your PCP next week if symptoms are not improving. Go to the ER immediately if symptoms worsen to include development of new fever greater than 100.3, shortness of breath, chest pain. Your blood pressure was elevated above 120/80 today at Urgent Care. This puts you above the threshold for follow up. Please schedule a followup visit with your personal physician as soon as possible, for further evaluation and treatment. Even blood pressure exceeding 120/80 may indicate pre-hypertension. Patient Language: Chinese Prescriptions: New methylprednisolone [Medrol (Ned)] 4 mg tablets,dose pack See Rx Instructions .ROUTE .COMPLEX Qty: 21 0RF Rx Instructions: orally per package directions amoxicillin-pot clavulanate 875-125 mg tablet 1 tablet PO Q12H 7 Days Qty: 14 0RF No Action aspirin [Enteric Coated Aspirin] 81 mg tablet,delayed release (DR/EC) 81 mg PO DAILY amlodipine 2.5 mg tablet 2.5 mg PO DAILY Qty: 90 3RF ascorbic acid (vitamin C) [Vitamin C] 1,000 mg Tablet 1 g PO DAILY cholecalciferol (vitamin D3) 10 mcg (400 unit) tablet 400 unit PO DAILY cyanocobalamin (vitamin B-12) 2,000 mcg tablet 2,000 mcg PO DAILY carvedilol 3.125 mg tablet 3.125 mg PO BID Qty: 180 2RF finasteride [Proscar] 5 mg tablet 5 mg PO HS Qty: 90 3RF losartan-hydrochlorothiazide 50-12.5 mg tablet See Rx Instructions .ROUTE .COMPLEX Qty: 180 2RF Dose Instruction: TAKE 1 TABLET BY MOUTH TWICE DAILY Rx Instructions: TAKE 1 TABLET BY MOUTH TWICE DAILY atorvastatin 80 mg tablet See Rx Instructions .ROUTE .COMPLEX Qty: 90 2RF Dose Instruction: TAKE 1 TABLET BY MOUTH DAILY Rx Instructions: TAKE 1 TABLET BY MOUTH DAILY tamsulosin [Flomax] 0.4 mg capsule 0.4 mg PO HS Qty: 30 11RF Follow-up/Referrals: Sukhdev Sena MD [Primary Care Provider, [facility]]
== END 2025-02-04 08:38 | disposition home or self-care (01) ==
PROVIDERS: Emergency Provider Nurse Practitioner; PCP Family Medicine
DX: J22 Unspecified acute lower respiratory infection (principal); J01.90 Acute sinusitis, unspecified; Z87.891 Personal history of nicotine dependence; I12.9 Hypertensive chronic kidney disease with stage 1 through stage 4 chronic kidney disease, or unspecified chronic kidney disease; E11.22 Type 2 diabetes mellitus with diabetic chronic kidney disease; N18.31 Chronic kidney disease, stage 3a; I73.9 Peripheral vascular disease, unspecified; E78.2 Mixed hyperlipidemia; I25.10 Atherosclerotic heart disease of native coronary artery without angina pectoris; K21.9 Gastro-esophageal reflux disease without esophagitis; Z85.820 Personal history of malignant melanoma of skin; Z85.828 Personal history of other malignant neoplasm of skin; Z95.5 Presence of coronary angioplasty implant and graft; Z79.82 Long term (current) use of aspirin
CPT/HCPCS: 99213; G0463

== ENCOUNTER 2025-05-17 09:14 | Emergency (ER) | payer MEDICARE, SELFPAY ==
--- OUTSIDE RECORDS SUMMARY | 2024-09-13 07:55 | XMS_ITS | Continuity of Care Document ---
Author Organization [facility] Address [address] [address] Phone Care Team Providers Care Inside Sales Executive Name Role Phone Woodrow Maza MD Unavailable Unavailable Allergies, Adverse Reactions, Alerts Substance Reaction Status Criticality No Known Allergies Active No Inform ation No Known Allergies Active No Inform ation Medications Medication Instructions Dosage Dose Quantity Effective Dates (start - stop) Status Indication Fill Status Comments prednisolone acetate 1 % eye drops,suspen river instill 1 drop by ophthalmic route 4 times a day for 4 days into treated eye after laser 5 MG 1 tablet 4 - Active LOSARTAN POTASSIUM (unknown strength) take 1 tablet by oral route 2 times every day Not Availab le - Active tamsulosin 0.4 mg capsule take 1 capsule by oral route every day 1/2 hour following the same meal each day 5 MG 1 tablet - Active finasteride 5 mg tablet take 1 tablet by oral route every day 5 MG 1 tablet - Active aspirin 81 mg chewable tablet chew 1 tablet by oral route every day 5 MG 1 tablet - Active atorvastatin 80 mg tablet take 1 tablet by oral route every day 5 MG 1 tablet - Active carvedilol 6.25 mg tablet take 1 tablet by oral route 2 times every day with food 5 MG 1 tablet - Active amlodipine 5 mg tablet take 1 tablet by oral route every day 5 MG 1 tablet - Active PreserVision AREDS-2 250 mg-200 unit-40 mg-1 mg capsule take 1 tablet by oral route 2 times every day 1 tablet - Active Problems Condition Type Effective Dates (start - stop) Diagnosed Date Clinical Status Comments Nonexudative age-related macular degeneration Problem (finding) Active (qualifier value) Exudative age-related macular degeneration Problem (finding) Active (qualifier value) Nonexudative age-related macular degeneration Problem (finding) Active (qualifier value) Type 2 diabetes mellitus without complication Problem (finding) Active (qualifier value) Diabetes mellitus Problem (finding) - Active (qualifier value) Bilateral age-related cataract Problem (finding) - Active (qualifier value) Bilateral age-related nonexudative macular degeneration Problem (finding) - Active (qualifier value) Presbyopia Problem (finding) - Active (qualifier value) Procedures Procedure Date INJECTION EYE DRUG Vabysmo .1 mg PREFILL SYRINGE OCT Mac Ophthalmic Diagnostic Imaging Ap Advance Directives Directive Yes / No Effective Date File Name No Information Encounters Encounter Description Practice Location Reason(s) For Visit Diagnoses Date Provider Encounter Disposition [place], [address], [place], [place], [address] [place] [address] , tel: [phone] [facility] Exudative age-related macular degeneration, right eye, with active choroidal neovasculariza tion 5 Link Troy. [address], [id number], . tel:[phone] [facility], [address] , [place], [place], [id number] , tel: [phone] [facility] OCT no MD (chief complaint) Exudative age-related macular degeneration, right eye, with active choroidal neovasculariza tion 5 Link Troy. [address] [facility] , [place], [place], [id number], . tel:[phone] [facility], [address] [facility] , [place], [place], [id number] , tel:[phone] [facility] Exudative age-related macular degeneration, right eye, with active choroidal neovasculariza tion 5 Link [place]. [address], [place], [place], [id number], [place]. tel:[phone] [facility], [address], [place], [place], [id number] , [place] tel: [phone] [facility] OCT NO MD (chief complaint) Exudative age-related macular degeneration, right eye, with active choroidal neovasculariza tion [address] [place], [place], [place], [id number], [place]. tel:[phone] [facility], [address], [place], [place], [address] , tel: [phone] [facility] Exudative age-related macular degeneration, right eye, with active choroidal neovasculariza tion [address] [place], [place], [place], [id number], [place]. tel:[phone] [facility], [address], [place], [place], [id number] , [place] tel: [phone] [facility] macular degeneration (chief complaint) Exudative age-related macular degeneration, right eye, with active choroidal neovasculariza tionIntermedia te stage nonexudative age-related macular degeneration of left eyeType 2 diabetes mellitus without complication, without long-term current use of insulin [address] [place], [place], [place], [id number], [place]. tel:[phone] [facility], [address], [place], [place], [address] , [place] tel: [phone] [facility] Post Op (chief complaint) Presence of intraocular lensIntermedia te stage nonexudative age-related macular degeneration of both eyesType 2 diabetes mellitus without complication, without long-term current use of insulin [address], [place], [place], [id number], [place]. tel:[phone] [facility] [place], [address] [facility] , [place], [place], [id number] , [place] tel: [phone] [facility] Other secondary cataract, right eye 4 [facility]. [address] [facility] , [place], [place], [id number], [place]. tel:[phone] [facility], [address] [facility] , [place], [place], [id number] , tel: [phone] [facility] No Information 4 Cortez Love. [address], [place], [place], [id number], [place]. tel:[phone] [facility], [address], [place], [place], [id number] , tel: [phone] [facility] No Information 4 Cortez Love. [address], [place], [id number], [place]. tel:[phone] [facility] [place], [address], [id number] , [place] tel: [phone] [facility] Other secondary cataract, left eye 4 [facility]. [address], [place], [place], [id number], [place]. tel:[phone] [facility] [place], [address] [facility] [place], [place], [id number] , [place] tel: [phone] [facility] No Information 4 [facility]. [address] [facility] , [place], [place], [id number], [place]. tel:[phone] [facility], [address], [place], [place], [address] , [place] tel: [phone] [facility] Blurry Vision (chief complaint)Gla re (chief complaint) Presence of intraocular lensIntermedia te stage nonexudative age-related macular degeneration of both eyesPCO (posterior capsular opacification) , leftPosterior capsular opacification, rightPresbyopi a 4 Cortez Love. [address], [id number], . tel:[phone] [facility], [address] [facility] , [place], [place], [id number] , tel: [phone] [facility] post-op (chief complaint) Intermediate stage nonexudative age-related macular degeneration of both eyesPseudophak iaMeibomian gland dysfunction (MGD), bilateral, both upper and lower lidsPCO (posterior capsular opacification) , left 3 Cortez Love. [address], [id number], . tel:[phone] [facility], [address], [id number] , tel: [phone] [facility] Presence of intraocular lens 3 Heath Rayo. [address], [id number], . tel:[phone] [facility] [place], [address] [place] [address], [id number] , tel: [phone] [facility] No Information 3 [facility] [place]. [address], [id number], . tel:[phone] [facility], [address] [facility] [place], [place], [address] , tel: [phone] [facility] No Information 3 Jung Seals. [address] [facility] [address], [place], [place], [address], . tel:[phone] [facility], [address] [facility] [address], [place], [place], [address] , tel:[phone] [facility] blurry vision (chief complaint) Regular astigmatism of left eyeIntermediat e stage nonexudative age-related macular degeneration of both eyesPresence of intraocular lens Apr-0 3 Jung Seals. [address] [facility] , [place], [place], [id number], . tel:[phone] [facility], [address] [facility] , [place], [address] [place] [address] , tel:[phone] [facility] post op (chief complaint) Presence of intraocular lens Apr-0 3 Cortez Love. [address] [facility] , [place], [address] [place] [address], . tel:[phone] [facility], [address] [facility] , [place], [id number] , tel: [phone] [facility] Presence of intraocular lens Jul- 3 Heena TREY Lim. [address] [facility] [address], [place], [place], [id number], [place]. tel:[phone] [facility] [place], [address] [place] [address] 19 [place], [place], [id number] , tel: [phone] [facility] No Information 3 [facility]. [address] [facility] , [place], [address], . tel:[phone] [facility], [address] [facility] , [place], [place], [id number] , tel: [phone] [facility] No Information 3 Jung Seals. [address] [facility] , [place], [address] [place] [address], . tel: [phone] [facility], [address], [place], [place], [id number] , tel: [phone] [facility] No Information Jul- [address], [place], [place], [id number], . tel: [phone] [facility], [address], [place], [address] , tel: [phone] [facility] Glare (chief complaint)Pos t Op (chief complaint) Presence of intraocular lensAge-relate d nuclear cataract, left eyeIntermediat e stage nonexudative age-related macular degeneration of both eyes Jul- [address] , [place], [address] [place] [address], . tel: [phone] [facility], [address], [place], [place], [address] , tel: [phone] [facility] No Information [address] , [place], [address] [place] [address], . tel: [phone] [facility], [address] , [place], [address] [place] [address] , tel: [phone] [facility] No Information [address], [place], [place], [id number], . tel: [phone] [facility], [address], [place], [place], [address] , tel: [phone] [facility] Presence of intraocular lens Fe- [address], [place], [address] [place] [address], . tel:[phone] [facility] [place], [address] [place] [address] 19 , [place], [address] , tel: [phone] [facility] No Information 3 [facility]. [address] [facility] , [place], [id number], . tel:[phone] [facility], [address] [facility] , [place], [address] , tel: [phone] [facility] No Information 3 Jung Seals. [address] [facility] , [place], [id number], . tel:[phone] [facility], [address] [facility] , [place], [id number] , tel: [phone] [facility] No Information 3 Jung Seals. [address] [facility] , [place], [id number], . tel:[phone] [facility], [address] [facility] , [place], [place], [address] , tel: [phone] [facility] Glare (chief complaint) Age-related nuclear cataract, bilateralInter mediate stage nonexudative age-related macular degeneration of both eyesType 2 diabetes mellitus without complication, without long-term current use of insulinPresbyo marvel 3 Jung Seals. [address] [facility] , [place], [place], [address], . tel:[phone] [facility], [address] [facility] [address], [place], [place], [address] , tel: [phone] [facility] Diabetic eye exam (chief complaint) Intermediate stage nonexudative age-related macular degeneration of both eyesAge-relate d nuclear cataract, bilateralType 2 diabetes mellitus without complication, without long-term current use of insulinPresbyo marvel 2- 3 Cortez Love. [address], [id number], . tel:[phone] [facility], [address], [id number] , tel:[phone] [facility] diabetic eye exam (chief complaint) Type 2 diabetes mellitus without complication, without long-term current use of insulinInterme diate stage nonexudative age-related macular degeneration of both eyesAge-relate d nuclear cataract, bilateralPresb yopia 2 Cortez Love. [address], [id number], . tel:[phone] [facility], [address] [place] [address], [id number] , tel:[phone] [facility] macular degeneration (chief complaint) Intermediate stage nonexudative age-related macular degeneration of both eyesAge-relate d nuclear cataract, bilateralPresb yopiaType 2 diabetes mellitus without complication, without long-term current use of insulin 1 Cortez Love. [address], [id number], . tel:[phone] Family History Family Member Type Diagnosis Age At Onset Mother Problem Diabetes mellitus Payers Payer name Insurance type Identifiers Authorization(s) Com ments Medicare MB r ID: [id number] Name: Coverage Status Eligibility Check on: [id number] ship to Subscriber: selfPayer Address: [address], [place], [address], [employer] Phone: [phone] [employer] CI er ID: [id number] Name: Coverage Status Eligibility Check on: [id number] ship to Subscriber: selfPayer Address: [address] [address], [place], [place], [id number], [employer] Phone: [phone] Social History Type Description Quantity Date Captured Comments Alcohol Use Details Unknown Caffeine Use Details Unknown Tobacco Use Status No Information Smoking Status No Information Sex Male Current Gender Male (finding) Unknown Chief Complaint And Reason For Visit No Information Plan Of Treatment Date Type Action Status Appointment Eleazar Weber BOOKED History Of Present Illness Encounter Date Complaint History Of Prese nt Illness OCT no OCT NO macular degeneration Patient was being seen by [facility] following macular degeneration of both eyes. Notes he was getting injections of Vabysmo in his right eye with the last injection being on x12. Patient states vision has remained stable. Denies floaters. Notes checking his amsler grid at home with no changes. Post Op Patient presents for 3 week post op. Status post YAG Capsulotomy, right eye x 06/18/2023 and left eye x 06/17/2023. Patient states he completed his post op drops as prescribed. Patient denies any pain/discomfort. Patient states that his vision has been good, in both eyes, since his YAG Capsulotomy. Blurry Vision Patient presents c/o blurry vision in both eyes. Patient states vision over the last couple months has been blurry. States he notices a lot of fluctuation throughout the day and has to often blink to get images to appear in focus. Reports difficulty reading small print. Glare Patient presents c.o glare while driving at night. Reports oncoming headlights are bothersome causing difficulty seeing at night. post-op Patient returns for 1 month post-op following IOL rotation of the LEFT eye with Dr. Feng. Notes vision has improved since procedure. Cataract surgery right eye x 07/21/2022 and initial left eye surgery x 08/18/2022.Still experiencing discomfort right eye, using preservative-free artificial tears 2-3 times daily. Compliant with left eye drops as prescribed by Dr. Feng. No pain or vision loss. blurry vision The patient pres ents for an evaluation of blurry vision left eye since the cataract surgery 08/08/22. Patient referred by Dr. Toro for possible rotation. Patient notes blurry film over his vision left eye last few days. post op Patient returns for 1 week Vivity Toric PC IOL Left eye. Patient states it seems like there is a film over vision Right eye > left eye, blinking helps x several days. Glare Patient presents today with complaints of glare in his left eye progressing over the last several months. Patient states the glare from oncoming vehicles make it extremely difficult to see the road while driving. Post Op Patient presents today for a one week post op S/P PE IOL in the right eye. Patient states his vision has been pretty blurry since the procedure and he has been seeing flashes of light. Patient reports he has been compliant with drops. Patient reports that he has been having some pain in the corners of his right eye. Glare Patient states h e has a hard time seeing street signs at night due to glare from headlights both eyes x several months. Diabetic eye exam Patient presen ts for annual diabetic eye exam. Patient is a type 2 diabetic, and states he is no longer taking metformin due to better blood sugar levels an A1C. Notes A1C was last 6.7 and blood sugar has been well controlled. Patient denies changes in vision in either eye. diabetic eye exam Patient presen ts for annual DFE for diabetic eye exam OU. Pt is type II diabetic, not on insulin x past 8 years. Pt states blood sugar has been well controlled and last a1c 5.7. Vision remains stable OU. macular degeneration Patient pre sents for evaluation of AMD OU. Patient states vision appears stable since last eye exam x September 2017. Patient takes preservision AREDS 2 vitamins daily x 6 years. Pt is diabetic, last A1C was 5.9. Functional Status Date Description Comments No Information Instructions Date Instruction Additional Infor yamila Tuesday 06/20 JESSIKA Kent OD Relat ed to Exudative age-related macular degeneration, right eye, with active choroidal neovascularization Impression/Plan - No diabetic changes present in the eyes today. Recommend tight blood sugar control. Target [id number]=tdkus 5's. Related to Type 2 diabetes mellitus without complication, without long-term current use of insulin Impression/Plan - Di scussed and reviewed testing. Explained no blood or fluid present. Recommend continue with Vabysmo in the right eye @Q6 week intervals. Risks, benefits, and alternatives discussed. Patient wishes to proceed with plan. Related to Exudative age-related macular degeneration, right eye, with active choroidal neovascularization Impression/Plan - Di scussed and reviewed testing with patient. No blood or fluid present. Recommend observation, no treatment indicated at this time. Amsler monitoring, vitamins (AREDS 2), daily servings of dark leafy greens/dark fruits (spinach, kale, broccoli, plums, blueberries, etc.), dark sunglasses, and no smoking discussed. Advised patient to call immediately with new or worsening vision changes. Related to Intermediate stage nonexudative age-related macular degeneration of left eye Return in 1 year naif Toro MD for Complete Dilated Fundus Exam. Related to Intermediate stage nonexudative age-related macular degeneration of both eyes Impression/Plan - No diabetic retinopathy present in today's exam. Continue to maintain stable blood sugar and A1C. Monitor with PCP. Related to Type 2 diabetes mellitus without complication, without long-term current use of insulin Impression/Plan - co ntinue care with Dr. Toro Related to Intermediate stage nonexudative age-related macular degeneration of both eyes Impression/Plan - S/ P Yag cap in both eyes, good opening. monitor Related to Presence of intraocular lens 1) Da Yag Cap OS2) D a Yag Cap OD3) 2-4 week post op w/ available OD Related to PCO (posterior capsular opacification), left Impression/Plan - Re iterated intermediate stage macular degeneration was present in both eyes. Recommend a diet rich in antioxidants, no smoking, UV protection and daily Amsler grid monitoring. Call if any changes in home Amsler Grid or change in vision. Related to Intermediate stage nonexudative age-related macular degeneration of both eyes Impression/Plan - Di scussed PC haze on posterior capsule and effect on vision. Recommend Yag laser cap both eyes to increase vision and decrease glare. Discussed risks, benefits and alternatives. Patient understands and wishes to proceed. Plan for Yag laser cap LEFT EYE then Yag laser cap RGHT EYE. Electronic consents obtained. Erx'd Prednisolone Acetate 4 times a day for 4 days to treated eye after laser. Related to Posterior capsular opacification, right Impression/Plan - Re fraction obtained. Related to Presbyopia Impression/Plan - Di scussed PC haze on posterior capsule and effect on vision. Recommend Yag laser cap both eyes to increase vision and decrease glare. Discussed risks, benefits and alternatives. Patient understands and wishes to proceed. Plan for Yag laser cap LEFT EYE then Yag laser cap RGHT EYE. Electronic consents obtained. Erx'd Prednisolone Acetate 4 times a day for 4 days to treated eye after laser. Related to PCO (posterior capsular opacification), left Impression/Plan - Le nses are in good position in both eyes. Monitor/follow. Related to Presence of intraocular lens [facility] 05/2023 for PCO c heck (when patient returns to [place]) Related to PCO (posterior capsular opacification), left Impression/Plan - No signs of lens dislocation. Improved vision and diagnostic refraction. Lens closer to axis target. Good response to secondary procedure. Monitor. Related to Pseudophakia Impression/Plan - In flammation of oil glands on lids noted today on examination; can contribute to dry eye symptoms. Recommend use of preservative-free artificial tears (iVizia) for comfort and visual stability. Use at least 2-3 times daily both eyes, but may use as much as needed with no upper limit. Return if dry eye symptoms become persistent and severe with no relief from [id number] therapy. Related to Meibomian gland dysfunction (MGD), bilateral, both upper and lower lids Impression/Plan - No t dilated right eye today. No signs of wet changes left eye. Continue to monitor with regular dilated exams. Recommend incorporation of one serving of dark leafy greens and one serving of dark berries daily as allowed by PCP/Purification Director. Monitor at-home Amsler grid and call with any changes. Recommend UV protection at all times while outside. Continue to refrain from smoking and avoid groups with secondhand smoke. Related to Intermediate stage nonexudative age-related macular degeneration of both eyes Impression/Plan - Di scussed with patient that there is a haze beginning to form behind the lens implant in both eyes. Briefly outlined YAG capsulotomy procedure; approximately 60% of people who have cataract surgery will need this procedure done in the future. Vision adequate for patient's needs at this time. Continue to monitor until haze worsens to where daily activities of living are limited due to its presence. Related to PCO (posterior capsular opacification), left See SS Related to Regul ar astigmatism of left eye Impression/Plan - Di scussed findings with patient. Patient has a couple options to help remove the residual astigmatism. Option one is to go back to the surgery center and rotate the lens. Option 2 is to wait until the eye is fully healed and go back and do PRK on the cornea. Patient wishes to do rotation. Patient understands risks benefits and alternatives. NO guarantee of 20/20 vision. Informed consent obtained.plan Paracentesis with IOL rotation of the left eye Related to Regular astigmatism of left eye Impression/Plan - Le nses stable. OS off axis. OD in place Related to Presence of intraocular lens Impression/Plan - Mo nitor for changes. Recommend eye vitamins and amsler grid monitoring. Related to Intermediate stage nonexudative age-related macular degeneration of both eyes Consult w/ Dr Feng Related to Presence of intraocular lens Impression/Plan - Di scussed with patient. Lens in the left eye has rotated and when it does that the astigmatism is not corrected as well. Its not mandatory to treat if patient is comfortable with vision, however informed patient he can consider seeing Dr Feng to discuss rotation of lens if he would like. Patient would like to talk about options with Dr Feng. Related to Presence of intraocular lens DA2 with JAW Related to Age-r elated nuclear cataract, left eye Impression/Plan - OK to proceed with surgical plan: PE+Vivity Toric IOL LEFT EYE target DISTANCE no LRI. Related to Age-related nuclear cataract, left eye Impression/Plan - Ex plained vision is only as good at retina allows. Monitor. Related to Intermediate stage nonexudative age-related macular degeneration of both eyes Impression/Plan - He aling well. Continue medications as scheduled. Call if any changes in vision or pain occurs. Related to Presence of intraocular lens ss Related to Age-r elated nuclear cataract, bilateral Impression/Plan - Rf x done for diagnostic purposes Related to Presbyopia Impression/Plan - Di scussed the vision will only be as good as the retina allows, no guarantee of 20/20 vision. Related to Intermediate stage nonexudative age-related macular degeneration of both eyes Impression/Plan - Di scussed findings. Explained 80/20 ratio of healing on target vs healing off target. If patient did heal off target and elected upgraded lens we could perform a refractive enhancement 3 months after surgery if needed. Risk, benefits, and alternatives discussed. No guarantee of 20/20 vision.Lens options reviewed. With the standard lens will need rx glasses for all ranges for best corrected vision. With treating the astigmatism this would give distance vision, however, would need reading glasses for near and intermediate ranges. Patient is NOT a good candidate for Panoptix lenses. Patient is a candidate for Vivity lenses that give distance and intermediate ranges, however, he would need near vision correction.Patient understands and wishes to proceed with the following plan:PE+ Vivity Toric IOL RIGHT EYE Target DISTANCE no LRI. RE- eval if patient symptomatic PE+Vivity Toric IOL LEFT EYE target DISTANCE no LRI.Informed consents obtainedOk kenalog Related to Age-related nuclear cataract, bilateral Impression/Plan - Up on examination, there was no diabetic retinopathy present today. The importance of good diet control and monitoring of HgA1c and blood sugar was discussed. The patient should follow up with their primary medical doctor as directed or within six to twelve months. Related to Type 2 diabetes mellitus without complication, without long-term current use of insulin N/a cataract eval w/ Dr Feng R elated to Age-related nuclear cataract, bilateral Impression/Plan - Di agnostic refraction obtained. Related to Presbyopia Impression/Plan - Di scussed cataracts and effects on vision. Explained that patient is not seeing as well as he has in previous years and explained surgery could improve overall quality of vision. Patient is symptomatic and would like to proceed with cataract evaluation. Related to Age-related nuclear cataract, bilateral Impression/Plan - Di scussed with patient. Intermediate dry stage macular degeneration was present in both eyes, no significant changes. Recommend a diet rich in antioxidants, no smoking, UV protection and daily Amsler grid monitoring. Call if any changes in home Amsler Grid or change in vision. Continue with Areds2 vitamins. Related to Intermediate stage nonexudative age-related macular degeneration of both eyes Impression/Plan Related to Age-r elated nuclear cataract, bilateral Impression/Plan - Up on examination, there was no diabetic retinopathy present today. The importance of good diet control and monitoring of HgA1c and blood sugar was discussed. The patient should follow up with their primary medical doctor as directed or within six to twelve months. Related to Type 2 diabetes mellitus without complication, without long-term current use of insulin Return in 1 year for complete DF E Related to Type 2 diabetes mellitus without complication, without long-term current use of insulin Impression/Plan - Di scussed exam with patient. No apparent retinal changes secondary to diabetes. Stressed importance of blood sugar control and effect on vision. Follow/monitor yearly for changes. Related to Type 2 diabetes mellitus without complication, without long-term current use of insulin Impression/Plan - Rfx obtained. Related to Presbyopia Impression/Plan - Di scussed intermediate stage dry age related macular degeneration is present in both eyes. Condition is affecting central vision. Baseline OCT MAC obtained and reviewed today. Continue taking preservision AREDS 2 vitamins to maintain retinal health. Follow/monitor. Related to Intermediate stage nonexudative age-related macular degeneration of both eyes Impression/Plan - Di scussed effects of cataracts on vision. No tx recommended at this time until symptoms worsen. Follow/monitor. Related to Age-related nuclear cataract, bilateral return in 1 year wit h [facility] for DFE / OCT MAC Related to Intermediate stage nonexudative age-related macular degeneration of both eyes Impression/Plan - Gl asses RX updated today. Related to Presbyopia Impression/Plan - Di scussed exam with patient. Discussed effect of cataracts on vision. Patient is asymptomatic at this time. Continue to monitor until patient more symptomatic. Should call Dr Toro if vision worsens and cataract affects daily activities. Related to Age-related nuclear cataract, bilateral Impression/Plan - Di scussed intermediate stage dry age related macular degeneration is present in both eyes. Condition is affecting central vision. Baseline OCT MAC obtained and reviewed today. Continue taking preservision AREDS 2 vitamins to maintain retinal health. Related to Intermediate stage nonexudative age-related macular degeneration of both eyes Impression/Plan - Di scussed exam with patient. No apparent retinal changes secondary to diabetes. Stressed importance of BS control and effect on vision. 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
--- OUTSIDE RECORDS SUMMARY | 2025-05-17 09:16 | XMS_ITS | Clinical Summary ---
Author Organization [facility] [place] [address] [facility] Address [address] [place] [address] Care Team Providers Care Auto Tire Recapper Name Role Phone Sukhdev Sena MD Primary Care Provider [phone] Allergies No known active allergies Medications tamsulosin [...] History Medical History Date Comments Diabetes mellitus Hypertension Hyperlipidemia Heart disease Social History Tobacco [...] on file Sexual Orientation Not on file Last Filed Vital Signs Vital Sign Reading [...] 02/17/2023, 03/18/2022, 05/21/2021 Influenza Vaccine (#1) 2025 3, 03/18/2022, 02/02/2020, Additional history exists Insurance MEDICARE [facility] MEDICARE SUPPLEMENT INSURANCE MEDICARE [facility] MEDICARE SUPPLEMENT INSURANCE Care Teams Auto Tire Recapper Relationship Specialty Start Date End Date Sukhdev Sena MD [address] [id number] PCP - General Family Medicine 02/12/21
--- OUTSIDE RECORDS SUMMARY | 2025-05-17 09:16 | XMS_ITS | Clinical Summary ---
Author Organization [facility] [employer] Address [address] [place] [address] Care Team Providers Care Director Of Analytics Name Role Phone Unavailable Primary Care Provider Unavailabl e Source Comments [facility] [employer],non-owned Affiliates and Associated Physician Practices is amultiple site organization consisting of ambulatory clinics and hospital sitesin [place], [place], [place] and [place]. This disclosure is being madepursuant to the Care Everywhere program and may not contain all information available regarding this patient. Last updated 18.[facility] [employer] Allergies No known active allergies Medications * Be aware that medications may not be up to date on this document. Alwaysverify current medications with the patient. IRBESARTAN PO Active tamsulosin (FLOMAX) 0.4 MG capsule Take 0.4 mg by mouth once daily Take 30 minutes after a meal at the same time each day. Active finasteride (PROSCAR) 5 MG tablet Take 5 mg by mouth once daily Active metFORMIN (GLUCOPHAGE) 500 MG tablet Take 500 mg by mouth 2 times daily with morning and evening meal Active predniSONE (DELTASONE) 20 MG tabletIndication s:Acute sinusitis, recurrence not specified, unspecified location Take 1 tablet by mouth 2 times daily 14 tablet 8 Active albuterol HFA (VENTOLIN HFA) 108 (90 BASE) MCG/ACT inhalerIndicatio ns:Acute bronchitis, unspecified organism Inhale 2 puffs by mouth every 6 hours as needed for Wheezing or Cough 1 Inhaler 8 Active Active Problems No known active problems Social History Tobacco Use Types Packs/Day Years Used Date Smoking Tobacco: Former Cigars Smokeless Tobacco: Never Comments:3 x's per week Sex and Gender Information Value Date Recorded Sex Assigned at Not on file Legal Sex Male 8:52 AM CDT Gender Identity Not on file Sexual Orientation Not on file Last Filed Vital Signs Vital Sign Reading Time Taken Comments Blood Pressure 130/82 05/19/2018 10:20 AM PANEL ASSEMBLER Pulse 63 05/19/2018 10:20 AM PANEL ASSEMBLER Temperature 37.1 C (98.7 F) 05/19/2018 10:20 AM PANEL ASSEMBLER Respiratory Rate 16 05/19/2018 10:20 AM PANEL ASSEMBLER Oxygen Saturation 96% 05/19/2018 10:20 AM PANEL ASSEMBLER Inhaled Oxygen Concentration - - Weight 99.8 kg (220 lb) 05/19/2018 10:20 AM PANEL ASSEMBLER Height 182.9 cm (6') 05/19/2018 10:20 AM PANEL ASSEMBLER Body Mass Index 29.84 05/19/2018 10:20 AM PANEL ASSEMBLER Plan of Treatment Health Maintenance Due Date Last Done Comments HEPATITIS C SCREENING 09/03/1963 DTAP/TDAP/TD VACCINES (1 - Tdap) 09/07/1966 PNEUMOCOCCAL VACCINE 50+ (1 of 1 - PCV) 09/07/1997 ZOSTER VACCINE (1 of 2) 09/07/1997 SCREENING FOR DIABETES 05/19/2018 Respiratory Syncytial Virus (RSV) Vaccine Pt: or over 60 yrs (1 - 1-dose 75+ series) 09/07/2022 DEPRESSION SCREENING 05/25/2024 COVID-19 VACCINE (1 - 2024-2 6 season) 2025 INFLUENZA VACCINE (#1) 2025 HEPATITIS B VACCINE Aged Out No longe r eligible based on patient's age to complete this topic HIB VACCINE Aged Out No longer eligi ble based on patient's age to complete this topic HPV VACCINE Aged Out No longer eligi ble based on patient's age to complete this topic MENINGOCOCCAL (Group B) VACC INE SHARED DECISION-MAKING Aged Out No longer eligibl e based on patient's age to complete this topic MENINGOCOCCAL GROUPS A/C/Y/W VACCINE Aged Out No longer eligible b ased on patient's age to complete this topic Insurance MEDICARE MEDICARE MEDICARE
[2025-05-17 09:20] VITALS: BP 125/68; PULSE 62; RESP 20; TEMP 36.6; O2SAT 100
--- NOTE | 2025-05-17 09:31 | ED.URI ---
HPI - URI/Sore Throat General Chief Complaint: Upper Respiratory Infection Stated Complaint: congestion Time Seen by Provider: 05/17/25 09:31 Source: patient, RN notes reviewed and old records reviewed Mode of arrival: ambulatory Limitations: no limitations History of Present Illness HPI Narrative: 79-year-old male presents to [facility] with complaints of 2 day history of cough with sinus congestion and drainage with sinus pressure.. Denies any sore throat ear pain or any fevers or chills. He reports he has taken Zyrtec for his sinus congestion. Patient reports that he has had some bronchial issues in past. Patient comes reports past history of tobacco use but has quit over 4 years ago MD elicited complaint: cough, rhinorrhea and nasal congestion Pertinent past history: other (bronchial issues) Onset (ago): day(s) (2) Consistency: constant Severity: moderate Description of mucous: clear Able to tolerate fluids by mouth: Yes Treatments prior to arrival: other (zyrtec) Related Data Home Medications ?Medication ?Instructions ?Recorded ?Confirmed ?Last Taken ?Type aspirin 81 mg tablet,delayed 81 mg PO DAILY 09/29/19 03/02/25 Unknown History release (Enteric Coated Aspirin) ascorbic acid (vitamin C) 1,000 mg 1 g PO DAILY 02/22/20 03/02/25 Unknown History tablet (Vitamin C) cholecalciferol (vitamin D3) 10 400 unit PO DAILY 03/11/22 03/02/25 Unknown History mcg (400 unit) tablet cyanocobalamin (vitamin B-12) 2,000 mcg PO DAILY 03/11/22 03/02/25 Unknown History 2,000 mcg tablet amlodipine 5 mg tablet mg 05/17/25 Unknown History Allergies Allergy/AdvReac Type Severity Reaction Status Date / Time No Known Allergies Allergy Verified 05/17/25 09:22 Review of Systems Review of Systems: CONSTITUTIONAL: Positive malaise,no chills, sweats, or fever. EYES: Denies visual changes, redness, or discharge. ENT: Reports rhinorrhea, congestion, sinus pain,no otalgia and no sore throat. CARDIOVASCULAR: Denies chest pain, palpitations, or edema. RESPIRATORY: Reports cough productive at times? Denies dyspnea. GASTROINTESTINAL: Denies abdominal pain, nausea, vomiting, diarrhea SKIN: Denies rash or itching. MUSCULOSKELETAL: Denies myalgia. NEUROLOGIC: Denies headache. All systems reviewed & are unremarkable except as noted in HPI and below [facility] Past Medical History Medical History Renal insufficiency BUN 27, creatinine 1.52 with GFR 45 on 01/30/2021. BUN 35, creatinine 1.67, GFR 40 on 09/25/2021. Renal ultrasound 12/05/2021 with cyst in the left kidney with largest 4.5 cm with normal bladder and mild prostate enlargement. BUN 38 with creatinine 1.82 with GFR 38, decreased from 40 on 02/07/2022. BUN 34, creatinine 1.42 with GFR 52 on 11/26/2022. GERD (gastroesophageal reflux disease) Malignant melanoma (07/12/20) left posterior shoulder excised with no recurrence Elevated fasting glucose glucose 127 with hemoglobin A1c 6.1 on 11/26/2022. Controlled diabetes mellitus without complication, without long-term current use of insulin (05/05/24) fasting glucose 110 with hemoglobin A1c 6.5 and urine microalbumin ratio of 14 with GFR 49 on 05/05/2024. fasting glucose 122, hemoglobin A1c 6.4, GFR 41 on 12/29/2024. Chronic kidney disease (CKD) stage G3a/A1, moderately decreased glomerular filtration rate (GFR) between 45-59 mL/min/1.73 square meter and albuminuria creatinine ratio less than 30 mg/g (05/05/24) BUN 27, creatinine 1.52 with GFR 45 on 01/30/2021. BUN 35, creatinine 1.67, GFR 40 on 09/25/2021. Renal ultrasound 12/05/2021 with cyst in the left kidney with largest 4.5 cm with normal bladder and mild prostate enlargement. BUN 38 with creatinine 1.82 with GFR 38, decreased from 40 on 02/07/2022. BUN 34, creatinine 1.42 with GFR 52 on 11/26/2022. BUN 25, creatinine 1.48 with GFR 49 on 05/05/2024. BUN 32, creatinine 1.71 with GFR 41 on 12/29/2024. At low risk for fall BMI 24.0-24.9, adult Irritable bowel syndrome with diarrhea Encounter for prostate cancer screening PSA 1.08 on 05/05/2024. Diarrhea stool for O&P, C&S, Giardia, C difficile toxin negative on 03/13/2022. Overweight (BMI 25.0-29.9) BMI 26.0-26.9,adult Right shoulder pain Left shoulder pain Dysplastic nevus dysplastic nevus with mild atypia right midback Basal cell carcinoma (~07/14/19) left inferior lateral neck Squamous cell carcinoma BMI 25.0-25.9,adult COVID-19 (02/10/21) fully vaccinated and positive for COVID on 02/13/2021 Dizziness BMI 31.0-31.9,adult Chronic cholecystitis Encounter for surgical aftercare following surgery on the digestive system CAD (coronary artery disease) prison (current) use of antithrombotics/antiplatelets Biliary dyskinesia Upper abdominal pain Atherosclerosis of coronary artery of [place] heart without angina pectoris Three stents 2018. Essential (primary) hypertension Mixed hyperlipidemia Cholesterol 111, triglycerides 60, HDL 48, LDL 49 on 09/25/2021. Total cholesterol 114, HDL 55, triglycerides 54, LDL 46 with ratio 2.1 on 11/26/2022. Cholesterol 99, HDL 47, triglycerides 42, LDL 40 with ratio of 2.1 on 05/05/2024. Cholesterol 107, triglycerides 66, HDL 51, LDL 41 with ratio 2.1 on 12/29/2024. Peripheral vascular disease with claudication Type 2 diabetes mellitus without complication, without long-term current use of insulin Elevated fasting glucose, no diabetes. Fasting glucose 93 with hemoglobin A1c 5.9 , urine microalbumin ratio of 5 on 09/25/2021. Glucose 110 with hemoglobin A1c 5.9 on 02/07/2022. Fasting glucose 127 with hemoglobin A1c 6.1 on 11/26/2022. Surgical History Surgical History Hx laparoscopic cholecystectomy 02/29/2020 History of coronary artery stent placement July 27- stent placed July 30- 2 stents placed H/O neck surgery 2009 Family History Family History Mother Diabetes mellitus Family history of Parkinson's disease, Onset Age: 79 Father Family history of malignant neoplasm of kidney, Onset Age: 82 Sibling Diabetes mellitus Social History Social History Smoking packs per day: 0.75 Smoking cigarettes per day: 15.0 Years smoked: 20 Smoking pack-years: 15.00 Smoking status: Former smoker Tobacco type: cigarettes Second hand tobacco smoke exposure: No Smoking end date: 05/25/07 Additional smoking assessment comments: <PK/DAY/20+YRS - QUIT JULY 2019 Alcohol intake: current Drinks per week: 10 Substance use: never Lack of Transportation: No Lack of Food: Never True Current Housing: I Have Housing Concerned About Future Housing: No Difficulty Paying Gas/Electric Bills: No Difficulty Paying for Meds: No Currently Unemployed: No Education: High School Diploma/GED Difficulty w/ Childcare or Family Care: No Living arrangements: with family Spiritual care concerns: No Comments At time of signature, agree with nursing past medical, surgical, social and family history. There is no relevant family history pertinent to the presenting complaint Exam Narrative: GENERAL: Well-appearing, well-nourished, and in no acute distress. HEAD: Normocephalic EYES: PERRLA, conjunctivae clear ENT: Nares clear, turbinates edematous and erythematous, clear discharge, sinus pressure.. Mucous membranes moist. TM pearly padilla with dull light reflex bilaterally; no tragal tenderness. Oropharynx erythematous without lesions. Tonsils not enlarged and without exudate, no drooling, no hoarseness, no trismus, uvula midline.post nasal drainage noted NECK: Supple. No lymphadenopathy CHEST: Clear to auscultation, breath sounds equal. No wheezing, rhonchi, rales, or stridor. No respiratory distress, speaks in full sentences.cough productive at times.SAO2 100% on room air HEART: Regular rate and rhythm. No murmur heard. SKIN: Warm, dry, no rash. NEURO: Alert and oriented x3. PSYCH: Normal mood and affect Course Course Level of Care: Express Care Visit Vital Signs Vital signs: Vital Signs Temperature 36.6 C 05/17/25 09:20 Pulse Rate 62 05/17/25 09:20 Respiratory Rate 20 05/17/25 09:20 Blood Pressure 125/68 05/17/25 09:20 Pulse Oximetry 100 05/17/25 09:20 Oxygen Delivery Room Air 05/17/25 09:20 Temperature 36.6 C 12/24/25 09:20 Pulse Rate 62 05/17/25 09:20 Respiratory Rate 20 05/17/25 09:20 Blood Pressure 125/68 05/17/25 09:20 Pulse Oximetry 100 05/17/25 09:20 Oxygen Delivery Room Air 05/17/25 09:20 reviewed MDM MDM Narrative Medical decision making narrative: Patient noted to have symptoms of sinusitis and acute cough RX of Azithromycin and Prednisone sent to patient's Pharmacy, negative for flu and COVID.Patient agrees to treatment plan. Anticipatory guidance and reviewed reasons to seek care in the ED with understanding voiced. Differential Diagnosis Differential Diagnosis: Differential diagnostic considerations for upper respiratory infection include upper respiratory infection, croup, otitis media, sinusitis, viral infection, bronchitis, influenza, pharyngitis, strep, uvulitis.? Lab Data Lab results narrative: influenza A&B negative Covid antigen negative Labs: Lab Results 05/17/25 Range/Units 09:40 POC Influenza A Ag Negative (Negative) POC Influenza B Ag Negative (Negative) POC SARS CoV-2 Ag Negative (Negative) reviewed Critical Care Time Critical Care Time Critical Care Time: No Discharge Plan Discharge Clinical Impression: Acute cough, Bacterial sinusitis Patient Disposition: Home Condition: Stable Instructions: Antibiotic Form, Sinusitis (ED), Acute Cough (ED) Additional Instructions: Increase fluids especially juices and water [id number] cough and cold medicine of your choice for your symptoms Zyrtec ,Claritin or Jailene include Coricidin decongestant Steroids as directed--take with food heat to the face 20-30 minutes 4-6 times a day for pain Salt water gargles, throat lozenges or throat sprays as desired Antibiotic as directed--finished the medication If your symptoms persist, change or worsen significantly before you can contact your personal physician then please, without delay, go to the emergency department for further evaluation. Follow-up with PCP in 7-10 days or sooner if needed Follow up with PCP soon in regards to your blood pressure which is elevated above threshold for referral. Blood pressure above 120/80 may indicate pre-hypertension.Minimal elevation 125/68 is on medication for hypertension Patient Language: Occitan Prescriptions: New azithromycin 250 mg tablet See Rx Instructions .ROUTE .COMPLEX Qty: 6 0RF Rx Instructions: For 250 mg dose pack: take 500 mg today (day 1), then 250 mg for 4 days (days 2-5) prednisone 20 mg tablet 40 mg PO DAILY 5 Days Qty: 10 0RF Rx Instructions: take in AM with food No Action amlodipine 5 mg tablet aspirin [Enteric Coated Aspirin] 81 mg tablet,delayed release (DR/EC) 81 mg PO DAILY amlodipine 2.5 mg tablet 2.5 mg PO DAILY Qty: 90 3RF ascorbic acid (vitamin C) [Vitamin C] 1,000 mg Tablet 1 g PO DAILY cholecalciferol (vitamin D3) 10 mcg (400 unit) tablet 400 unit PO DAILY cyanocobalamin (vitamin B-12) 2,000 mcg tablet 2,000 mcg PO DAILY losartan-hydrochlorothiazide 50-12.5 mg tablet See Rx Instructions .ROUTE .COMPLEX Qty: 180 2RF Dose Instruction: TAKE 1 TABLET BY MOUTH TWICE DAILY Rx Instructions: TAKE 1 TABLET BY MOUTH TWICE DAILY atorvastatin 80 mg tablet See Rx Instructions .ROUTE .COMPLEX Qty: 90 2RF Dose Instruction: TAKE 1 TABLET BY MOUTH DAILY Rx Instructions: TAKE 1 TABLET BY MOUTH DAILY tamsulosin [Flomax] 0.4 mg capsule 0.4 mg PO HS Qty: 30 11RF finasteride [Proscar] 5 mg tablet 5 mg PO HS Qty: 90 3RF carvedilol 3.125 mg tablet See Rx Instructions .ROUTE .COMPLEX Qty: 180 2RF Dose Instruction: TAKE 1 TABLET BY MOUTH TWICE DAILY Rx Instructions: TAKE 1 TABLET BY MOUTH TWICE DAILY Follow-up/Referrals: Sukhdev Sena MD [Primary Care Provider, [facility]] Time of Disposition: 10:03 Quality [place] Coma Scale Eyes: Open Verbal: Oriented and Alert Motor: Follows Commands [place] Coma Total Score: 15
[2025-05-17 09:53] LABS: EDCOVIDSCREEN Negative (Negative); EDINFLUASCREEN Negative (Negative); EDINFLUBSCREEN Negative (Negative)
== END 2025-05-17 10:08 | disposition home or self-care (01) ==
PROVIDERS: Emergency Provider Registered Nurse; PCP Family Medicine
DX: R05.1 Acute cough (principal); J32.9 Chronic sinusitis, unspecified; Z20.822 Contact with and (suspected) exposure to COVID-19; I12.9 Hypertensive chronic kidney disease with stage 1 through stage 4 chronic kidney disease, or unspecified chronic kidney disease; E11.22 Type 2 diabetes mellitus with diabetic chronic kidney disease; N18.31 Chronic kidney disease, stage 3a; I25.10 Atherosclerotic heart disease of native coronary artery without angina pectoris; E78.2 Mixed hyperlipidemia; E11.51 Type 2 diabetes mellitus with diabetic peripheral angiopathy without gangrene; K21.9 Gastro-esophageal reflux disease without esophagitis; Z85.820 Personal history of malignant melanoma of skin; Z85.828 Personal history of other malignant neoplasm of skin; Z86.16 Personal history of COVID-19; Z95.5 Presence of coronary angioplasty implant and graft; Z87.891 Personal history of nicotine dependence; Z79.82 Long term (current) use of aspirin
CPT/HCPCS: 87426; 87804; 99213; G0463